=== PATIENT | female | born 2000 | race Hispanic/Latino ===

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

== ENCOUNTER 2018-10-24 21:52 | Emergency (ER) | payer OTHER, SELFPAY ==
--- OUTSIDE RECORDS SUMMARY | 2018-10-24 22:46 | XMS REPORT ---
:2000 [facility] [address] [place] [address] Care Team Providers Name Role Phone Unavailable Unavailable Unavailable Problems This patient has no known problems. Allergies, Adverse Reactions, Alerts This patient has no known allergies or adverse reactions. Medications This patient has no known medications.
[2018-10-24 22:49] LABS: Urine Blood 2+ (NEG); Urine Glucose NEGATIVE (NEG); Urine Protein 1+ (NEG); Urine Specific Gravity <1.005 (1.005-1.030)
[2018-10-24] MEDS ORDERED: HYDROMORPHONE HCL 0.5 MG/0.5 ML INJ ONE (22:55)
[2018-10-24] MEDS ORDERED: NA CHLORIDE 0.9% 1,000 ML ONE (22:55)
[2018-10-24] MEDS ORDERED: ONDANSETRON 4 MG/2 ML VIAL ONE (22:55)
[2018-10-24 23:35] LABS: Absolute Monocytes 0.6 K/uL (0.1-1.3); Absolute Neutrophil 7.3 K/uL (1.8-8.0); Basophils % 0.4 % (0-1.3); Eosinophils % 1.2 % (0-4.4); Hematocrit 41.1 % (36.0-45.0); Lymphocytes % 33.1 % (15.3-44.8); MPV 8.2 fL (7.6-11.3); Monocytes % 5.2 % (3.3-12.3); RBC Red Blood Cell Count 4.87 M/uL (3.86-4.86)
[2018-10-24 23:54] LABS: ALT/SGPT 24 U/L (12-78); AST/SGOT 11 U/L (15-37); Alkaline Phosphatase 127 U/L (45-117); BUN Blood Urea Nitrogen 16 mg/dL (7-18); Bicarbonate 25 mmol/L (21-32); Bilirubin Direct < 0.1 mg/dL (0-0.2); Bilirubin Total 0.3 mg/dL (0.2-1.0); Glucose Level 110 mg/dL (74-106); Lipase 143 U/L (73-393); Potassium 3.5 mmol/L (3.5-5.1); Protein, Total 8.2 g/dL (6.4-8.2); Sodium Level 141 mmol/L (136-145)
[2018-10-25] MEDS ORDERED: Levofloxacin500mg IV 500 MG/100 ML BAG IV ONE (00:18)
[2018-10-25] MEDS ORDERED: CEFTRIAXONE/SWI 1gm 1 GM/10 ML SYR ONE (00:18)
[2018-10-25] MEDS ORDERED: HYDROMORPHONE HCL 0.5 MG/0.5 ML INJ ONE (00:26)
--- NOTE | 2018-10-25 02:29 | ER ---
Nurse's Notes [facility] Name: Nicole Covarrubias Age: 18 yrs Sex: Female : 2000 Arrival Date: 10/24/2018 Time: 21:53 Bed 18 Private MD: Diagnosis: Abdominal tenderness;Cystitis;Cholelithiasis Presentation: 10/24 22:08 Presenting complaint: Patient states: Lower abdominal, low back and pelvic pain for the aj1 past 2 days that became severe this morning. Patient reports urinary frequency. nausea and vomiting. Transition of care: patient was not received from another setting of care. Onset of symptoms was October 24, 2018. Risk Assessment: Do you want to hurt yourself or someone else? Patient reports no desire to harm self or others. Initial Sepsis Screen: Does the patient meet any 2 criteria? No. Patient's initial sepsis screen is negative. Does the patient have a suspected source of infection? No. Patient's initial sepsis screen is negative. Care prior to arrival: None. 22:08 Method Of Arrival: Ambulatory aj1 22:08 Acuity: PHUONG 3 aj1 Triage Assessment: 22:10 General: Appears uncomfortable, Behavior is anxious, crying, restless. Pain: Complains aj1 of pain in low back area, right lower quadrant, left lower quadrant and pelvis Pain currently is 10 out of 10 on a pain scale. Neuro: Level of Consciousness is awake, alert, obeys commands. Cardiovascular: Patient's skin is warm and dry. Respiratory: Airway is patent Respiratory effort is even, unlabored, Respiratory pattern is regular, symmetrical. GI: Reports nausea, vomiting. : Reports urinary frequency. 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 - Social history:: Smoking status: Patient/guardian denies using tobacco. - Ebola Screening: : Patient denies travel to an Ebola-affected area in the 21 days before illness onset. - Family history:: not pertinent. Screenin:08 Abuse screen: Denies threats or abuse. Nutritional screening: No deficits noted. jb4 Tuberculosis screening: No symptoms or risk factors identified. Fall Risk None identified. Assessment: 22:10 General: Appears in no apparent distress. uncomfortable, Behavior is calm, cooperative, jb4 appropriate for age. Pain: Complains of pain in pelvis Pain does not radiate. Pain currently is 9 out of 10 on a pain scale. Quality of pain is described as crampy. Neuro: Level of Consciousness is awake, alert, obeys commands, Oriented to person, place, time, situation. Cardiovascular: Patient's skin is warm and dry. Respiratory: Airway is patent Respiratory effort is even, unlabored, Respiratory pattern is regular, symmetrical. GI: No signs and/or symptoms were reported involving the gastrointestinal system. : Reports urgency, urinary frequency, "a weird sensation after voiding.". EENT: No signs and/or symptoms were reported regarding the EENT system. Derm: Skin is intact, Skin is pink, warm \\T\\ dry. Musculoskeletal: Circulation, motion, and sensation intact. 23:00 Reassessment: Patient appears in no apparent distress at this time. Patient and/or jb4 family updated on plan of care and expected duration. Pain level reassessed. Patient is alert, oriented x 3, equal unlabored respirations, skin warm/dry/pink. 10/25 00:00 Reassessment: Patient appears in no apparent distress at this time. Patient and/or jb4 family updated on plan of care and expected duration. Pain level reassessed. Patient is alert, oriented x 3, equal unlabored respirations, skin warm/dry/pink. 01:00 Reassessment: Patient appears in no apparent distress at this time. Patient and/or jb4 family updated on plan of care and expected duration. Pain level reassessed. Patient is alert, oriented x 3, equal unlabored respirations, skin warm/dry/pink. Patient states feeling better. 02:00 Reassessment: Patient appears in no apparent distress at this time. Patient and/or jb4 family updated on plan of care and expected duration. Pain level reassessed. Patient is alert, oriented x 3, equal unlabored respirations, skin warm/dry/pink. Vital Signs: 10/24 22:10 BP 122 / 84; Pulse 103; Resp 18; Temp 98.6; Pulse Ox 100% on R/A; Weight 81.65 kg (R); aj1 Height 5 ft. 1 in. (154.94 cm) (R); Pain 10/10; 23:00 BP 128 / 77; Pulse 94; Resp 18; Pulse Ox 99% on R/A; jb4 10/25 00:00 BP 115 / 91; Pulse 54; Resp 16; Pulse Ox 100% on R/A; jb4 01:00 BP 107 / 65; Pulse 94; Resp 16; Pulse Ox 99% on R/A; jb4 02:15 BP 107 / 69; Pulse 88; Resp 16; Pulse Ox 100% on R/A; jb4 10/24 22:10 Body Mass Index 34.01 (81.65 kg, 154.94 cm) aj ED Course: 10/24 21:53 Patient arrived in ED. ag3 22:09 Triage completed. aj1 22:10 Arm band placed on. aj1 22:13 Topher Rodriguez MD is Attending Physician. [facility] 22:25 Inserted saline lock: 20 gauge in right antecubital area, using aseptic technique. ag4 22:30 Hector Graves, RN is Primary Nurse. [facility] 22:30 Patient has correct armband on for positive identification. Bed in low position. Call [facility] light in reach. Side rails up X 1. Pulse ox on. NIBP on. 22:32 Oral contrast given. 2 10/25 00:28 CT completed. Patient tolerated procedure well. Patient moved to CT via wheelchair. eh Patient moved back from CT. 01:19 CT Abd/Pelvis - W/Contrast In Process Unspecified. EDMS 02:28 Ronnie Denise MD is Referral Physician. [facility] 02:39 No provider procedures requiring assistance completed. IV discontinued, intact, jb4 bleeding controlled. Administered Medications: 10/24 22:50 Drug: Zofran 4 mg Route: IVP; Site: right antecubital; 4 10/25 01:04 Follow up: Response: No adverse reaction; Nausea is decreased [facility] 10/24 22:53 Drug: NS 0.9% 1000 ml Route: IV; Rate: 1 bolus; Site: right antecubital; 4 10/25 00:00 Follow up: Response: No adverse reaction; IV Status: Completed infusion [facility] 10/24 22:55 Drug: Dilaudid 0.5 mg Route: IVP; Site: right antecubital; jb4 10/25 01:05 Follow up: Response: No adverse reaction; Pain is decreased jb4 10/24 23:50 Drug: Rocephin - (cefTRIAXone) 1 grams {Note: Given IVP per pharmacy protocol.} Route: jb4 IVPB; Infused Over: 30 mins; Site: right antecubital; 23:52 Follow up: Response: No adverse reaction; IV Status: Completed infusion jb4 23:55 Drug: Dilaudid 0.5 mg Route: IVP; Site: right antecubital; jb4 10/25 01:05 Follow up: Response: No adverse reaction; Pain is decreased jb4 00:53 Drug: levofloxacin 500 mg Volume: 100 ml; Route: IVPB; Infused Over: 60 mins; Site: jb4 right antecubital; 01:53 Follow up: Response: No adverse reaction; IV Status: Completed infusion jb4 Outcome: 02:28 Discharge ordered by MD. daly 02:39 Discharged to home ambulatory, with significant other. jb4 02:39 Condition: stable 02:39 Discharge instructions given to patient, Instructed on discharge instructions, follow up and referral plans. medication usage, Demonstrated understanding of instructions, follow-up care, medications, Prescriptions given X 3. 02:40 Patient left the ED. jb4 Addendum: 10/27/2018 08:51 Addendum: Culture Results: Positive urine culture. No further action required. Bacteria i w sensitive to prescribed antibiotic. Signatures: Dispatcher [employer] EDMS Alicia Esparza RN RN aj1 Anderson, Corey, MD MD cha Hagler, Ana Domínguez RN RN iw Bryson, James, RN RN jb4 Namita Sandoval Alice ag3 Sandro Magdaleno ag4
--- NOTE | 2018-10-25 02:29 | EDPHYS ---
Physician Documentation [facility] Name: Nicole Covarrubias Age: 18 yrs Sex: Female : 2000 Arrival Date: 10/24/2018 Time: 21:53 Bed 18 Private MD: ED Physician Topher Rodriguez HPI: 10/24 22:29 This 18 yrs old Female presents to ER via Ambulatory with complaints of addy Abdominal Pain. 22:29 The patient presents with abdominal pain in the lower abdomen. Onset: The addy symptoms/episode began/occurred this morning. The symptoms do not radiate. Associated signs and symptoms: none. The symptoms are described as constant, crampy. Modifying factors: The symptoms are alleviated by nothing, the symptoms are aggravated by nothing. Severity of pain: At its worst the pain was moderate in the emergency department the pain is unchanged. The patient has not experienced similar symptoms in the past. 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 - Social history:: Smoking status: Patient/guardian denies using tobacco. - Ebola Screening: : Patient denies travel to an Ebola-affected area in the 21 days before illness onset. - Family history:: not pertinent. ROS: 22:29 Constitutional: Negative for fever, chills, and weight loss, Eyes: Negative for injury, addy pain, redness, and discharge, ENT: Negative for injury, pain, and discharge, Neck: Negative for injury, pain, and swelling, Cardiovascular: Negative for chest pain, palpitations, and edema, Respiratory: Negative for shortness of breath, cough, wheezing, and pleuritic chest pain, Back: Negative for injury and pain, : Negative for injury, bleeding, discharge, and swelling, MS/Extremity: Negative for injury and deformity, Skin: Negative for injury, rash, and discoloration, Neuro: Negative for headache, weakness, numbness, tingling, and seizure. 22:29 Abdomen/GI: Positive for abdominal pain, abdominal cramps, of the suprapubic area, right lower quadrant and left lower quadrant. Exam: 22:29 Constitutional: This is a well developed, well nourished patient who is awake, alert, addy and in no acute distress. Head/Face: Normocephalic, atraumatic. Eyes: Pupils equal round and reactive to light, extra-ocular motions intact. Lids and lashes normal. Conjunctiva and sclera are non-icteric and not injected. Cornea within normal limits. Periorbital areas with no swelling, redness, or edema. ENT: Nares patent. No nasal discharge, no septal abnormalities noted. Tympanic membranes are normal and external auditory canals are clear. Oropharynx with no redness, swelling, or masses, exudates, or evidence of obstruction, uvula midline. Mucous membranes moist. Neck: Trachea midline, no thyromegaly or masses palpated, and no cervical lymphadenopathy. Supple, full range of motion without nuchal rigidity, or vertebral point tenderness. No Meningismus. Chest/axilla: Normal chest wall appearance and motion. Nontender with no deformity. No lesions are appreciated. Cardiovascular: Regular rate and rhythm with a normal S1 and S2. No gallops, murmurs, or rubs. Normal PMI, no JVD. No pulse deficits. Respiratory: Lungs have equal breath sounds bilaterally, clear to auscultation and percussion. No rales, rhonchi or wheezes noted. No increased work of breathing, no retractions or nasal flaring. Back: No spinal tenderness. No costovertebral tenderness. Full range of motion. Female : Normal external genitalia. Skin: Warm, dry with normal turgor. Normal color with no rashes, no lesions, and no evidence of cellulitis. MS/ Extremity: Pulses equal, no cyanosis. Neurovascular intact. Full, normal range of motion. Neuro: Awake and alert, GCS 15, oriented to person, place, time, and situation. Cranial nerves II-XII grossly intact. Motor strength 5/5 in all extremities. Sensory grossly intact. Cerebellar exam normal. Normal gait. Psych: Awake, alert, with orientation to person, place and time. Behavior, mood, and affect are within normal limits. 22:29 Respiratory: the patient does not display signs of respiratory distress, Respirations: normal, Breath sounds: are clear throughout. 22:29 Abdomen/GI: Inspection: distension, Bowel sounds: normal, Palpation: mild abdominal tenderness, moderate abdominal tenderness, in the suprapubic area, right lower quadrant and left lower quadrant, Liver: no appreciated palpable abnormalities, Hernia: not appreciated. Vital Signs: 22:10 BP 122 / 84; Pulse 103; Resp 18; Temp 98.6; Pulse Ox 100% on R/A; Weight 81.65 kg (R); aj1 Height 5 ft. 1 in. (154.94 cm) (R); Pain 10/10; 23:00 BP 128 / 77; Pulse 94; Resp 18; Pulse Ox 99% on R/A; jb4 02 00:00 BP 115 / 91; Pulse 54; Resp 16; Pulse Ox 100% on R/A; jb4 01:00 BP 107 / 65; Pulse 94; Resp 16; Pulse Ox 99% on R/A; jb4 02:15 BP 107 / 69; Pulse 88; Resp 16; Pulse Ox 100% on R/A; jb4 10/24 22:10 Body Mass Index 34.01 (81.65 kg, 154.94 cm) [facility] MDM: 10/24 22:13 Patient medically screened. [facility] 22:33 Data reviewed: vital signs, nurses notes, lab test result(s), EKG, radiologic studies. [facility] 10/24 22:29 Order name: Basic Metabolic Panel; Complete Time: 00:40 [facility] 10/24 22:29 Order name: CBC with Diff; Complete Time: 00:40 [facility] 10/24 22:29 Order name: Creatinine for Radiology; Complete Time: 00:40 [facility] 10/24 22:29 Order name: Hepatic Function; Complete Time: 00:40 [facility] 10/24 22:29 Order name: Lipase; Complete Time: 00:40 [facility] 10/24 22:29 Order name: Urine Culture [facility] 10/24 22:29 Order name: CT Abd/Pelvis - W/Contrast [facility] 10/24 22:46 Order name: Urine Dipstick--Ancillary (enter results); Complete Time: 00:40 [facility] 10/24 22:46 Order name: Urine --Ancillary (enter results) [facility] 10/24 22:29 Order name: IV Saline Lock; Complete Time: 22:30 [facility] 10/24 22:29 Order name: Labs collected and sent; Complete Time: 22:30 [facility] 10/24 22:29 Order name: Urine Dipstick-Ancillary (obtain specimen); Complete Time: 23:03 [facility] 10/24 22:29 Order name: Urine Test (obtain specimen); Complete Time: 23:03 [facility] Administered Medications: 22:50 Drug: Zofran 4 mg Route: IVP; Site: right antecubital; [facility] 10/25 01:04 Follow up: Response: No adverse reaction; Nausea is decreased [facility] 10/24 22:53 Drug: NS 0.9% 1000 ml Route: IV; Rate: 1 bolus; Site: right antecubital; [facility] 10/25 00:00 Follow up: Response: No adverse reaction; IV Status: Completed infusion [facility] 10/24 22:55 Drug: Dilaudid 0.5 mg Route: IVP; Site: right antecubital; [facility] 10/25 01:05 Follow up: Response: No adverse reaction; Pain is decreased [facility] 10/24 23:50 Drug: Rocephin - (cefTRIAXone) 1 grams {Note: Given IVP per pharmacy protocol.} Route: [facility] IVPB; Infused Over: 30 mins; Site: right antecubital; 23:52 Follow up: Response: No adverse reaction; IV Status: Completed infusion [facility] 23:55 Drug: Dilaudid 0.5 mg Route: IVP; Site: right antecubital; [facility] 10/25 01:05 Follow up: Response: No adverse reaction; Pain is decreased [facility] 00:53 Drug: levofloxacin 500 mg Volume: 100 ml; Route: IVPB; Infused Over: 60 mins; Site: [facility] right antecubital; 01:53 Follow up: Response: No adverse reaction; IV Status: Completed infusion [facility] Disposition: 10/25/18 02:28 Discharged to Home. Impression: Abdominal tenderness, Cystitis, Cholelithiasis. - Condition is Stable. - Discharge Instructions: Abdominal Pain, Adult, Dysuria, Urinary Tract Infection, Adult, Urinary Tract Infection, Adult, [id number], Abdominal Pain, Adult, [id number]. - Prescriptions for Levaquin 500 mg Oral Tablet - take 1 tablet by ORAL route once daily for 7 days; 7 tablet. Tylenol- Codeine #3 300-30 mg Oral Tablet - take 2 tablets by ORAL route every 6 hours As needed; 20 tablet. Pyridium 200 mg Oral Tablet - take 1 tablet by ORAL route every 8 hours for 3 days; 9 tablet. - Medication Reconciliation Form, Thank You Letter, Antibiotic Education, Prescription Opioid Use form. - Follow up: Private Physician; When: 2 - 3 days; Reason: Recheck today's complaints, Continuance of care, Re-evaluation by your physician. Follow up: Ronnie Denise MD; When: 2 - 3 days; Reason: Recheck today's complaints, Re-evaluation by your physician. - Problem is new. - Symptoms have improved. Signatures: Dispatcher [employer] EDAlicia Mcpherson RN RN aj1 Topher Rodriguez MD MD cha Bryson, James, RN RN jb4 Corrections: (The following items were deleted from the chart) : 02:28 10/25/2018 02:28 Discharged to Home. Impression: Abdominal tenderness; Cystitis; addy Cholelithiasis. Condition is Stable. Discharge Instructions: Abdominal Pain, Adult, Dysuria, Urinary Tract Infection, Adult, Urinary Tract Infection, Adult, [id number], Abdominal Pain, Adult, [id number]. Prescriptions for Levaquin 500 mg Oral Tablet - take 1 tablet by ORAL route once daily for 7 days; 7 tablet, Tylenol-Codeine #3 300-30 mg Oral Tablet - take 2 tablets by ORAL route every 6 hours As needed; 20 tablet, Pyridium 200 mg Oral Tablet - take 1 tablet by ORAL route every 8 hours for 3 days; 9 tablet. and Forms are Medication Reconciliation Form, Thank You Letter, Antibiotic Education, Prescription Opioid Use. Follow up: Private Physician; When: 2 - 3 days; Reason: Recheck today's complaints, Continuance of care, Re-evaluation by your physician. Problem is new. Symptoms have improved. addy 02:40 02:29 10/25/2018 02:28 Discharged to Home. Impression: Abdominal tenderness; Cystitis; jb4 Cholelithiasis. Condition is Stable. Discharge Instructions: Abdominal Pain, Adult, Dysuria, Urinary Tract Infection, Adult, Urinary Tract Infection, Adult, [id number], Abdominal Pain, Adult, [id number]. Prescriptions for Levaquin 500 mg Oral Tablet - take 1 tablet by ORAL route once daily for 7 days; 7 tablet, Tylenol-Codeine #3 300-30 mg Oral Tablet - take 2 tablets by ORAL route every 6 hours As needed; 20 tablet, Pyridium 200 mg Oral Tablet - take 1 tablet by ORAL route every 8 hours for 3 days; 9 tablet. and Forms are Medication Reconciliation Form, Thank You Letter, Antibiotic Education, Prescription Opioid Use. Follow up: Private Physician; When: 2 - 3 days; Reason: Recheck today's complaints, Continuance of care, Re-evaluation by your physician. Follow up: Ronnie Denise; When: 2 - 3 days; Reason: Recheck today's complaints, Re-evaluation by your physician. Problem is new. Symptoms have improved. addy
--- NOTE | 2018-10-25 13:28 | RAD REPORT ---
EXAM DESCRIPTION: CT - Abdomen Pelvis W Contrast - 10/25/2018 4:39 am CLINICAL HISTORY: ABD PAIN. COMPARISON: None. TECHNIQUE: Contiguous axial sections are obtained through the abdomen and pelvis as per protocol aft er administration of iodinated contrast. Oral contrast was administered. Sagittal and coronal reforma tions were obtained. Automatic exposure control (AEC), mA and/or kV adjustment by patient size, and/or iterative reconstru ctive technique was used, per departmental dose optimization program, during the performance of the C T examination. 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 The visualized lung bases demonstrates no abnormalities. The liver is normal in size and demonstrates normal attenuation and enhancement. The spleen, pancreas e, adrenal glands appear normal in size and attenuation without any focal abnormalities. The gallblad kinjal is well distended and demonstrates gallstones. Kidneys demonstrate no evidence of calculi. Kidneys are normal in size, shape, attenuation and enhanc ement. Focal areas of parenchymal loss is noted within the kidney The aorta, IVC and retroperitoneal structures appear normal. The stomach appears unremarkable. The small bowel loops appear unremarkable. The appendix is surgically absent. The colon is unremarkab le. Evidence of mesenteric adenitis is noted. No evidence of free intraperitoneal fluid or air is noted. CT examination of the pelvis demonstrates no evidence of mass or adenopathy. The urinary bladder appe ars normal. The reproductive organs are unremarkable. Inguinal regions are unremarkable. Bony structures are unremarkable. IMPRESSION: Gallstones. Focal areas of right renal parenchymal loss suggestive of prior renal infection. Electronically signed by Mary Ann Ingram MD 10/25/2018 1:29 AM SATELLITE TV INSTALLER Due to temporary technical issues with the PACS/Fluency reporting system, reports are being signed by the in house radiologist as a courtesy to ensure prompt reporting. The interpreting radiologist is f ully responsible for the content of the report.
== END 2018-10-25 02:40 | disposition home or self-care (01) ==
LOC: ER 21:52
DX: N30.90 Cystitis, unspecified without hematuria (principal); K81.9 Cholecystitis, unspecified; Z88.0 Allergy status to penicillin; Z88.1 Allergy status to other antibiotic agents; Z88.5 Allergy status to narcotic agent
CPT/HCPCS: 36415; 74177; 80048; 80076; 81003; 81025; 83690; 85025; 87077; 87086; 87088; 87186; 96361; 96365; 96375; 99284; J0696; J1170; J2405; J7030; Q9967

== ENCOUNTER 2023-08-07 19:46 | Emergency (ER) | payer OTHER, SELFPAY ==
--- OUTSIDE RECORDS SUMMARY | 2023-08-07 19:52 | XMS REPORT | Continuity of Care Document ---
:2000 Author Organization [facility] t Address [address] [place] [address] Care Team Providers Name Role Phone Pcp, Patient Does Not Have A Primary Care Physician [id number] Abdelrahman Cameron Attending Clinician Unavailable NORBERT CORTES Attending Clinician Unavailable Alexus Gary RN Attending Clinician Unavailable HAROON DANIELSON Attending Clinician Unavailable HAROON DANIELSON Attending Clinician Unavailable Doctor Unassigned, [place] Attending Clinician Unavailable ABDELRAHMAN CAMERON Attending Clinician Unavailable Nurse, [facility] Attending Clinician Unavailable Clara Mackay MD Attending Clinician [phone] CLARA MACKAY Attending Clinician Unavailable Lynn Black MD Attending Clinician [phone] Jake Rodarte Attending Clinician Unavailable JEET COBIAN Attending Clinician Unavailable Jeet Cobian MD Attending Clinician Samanta Chapman RN Attending Clinician Unavailable REX ALVARADO Attending Clinician Unavailable Rex Alvarado MD Attending Clinician Vtc-Lab Attending Clinician Unavailable Unknown, Attending Attending Clinician Unavailable UNKNOWN, ATTENDING Attending Clinician Unavailable AKIN QUINTANILLA Attending Clinician Unavailable LORRAINE AGOSTO Attending Clinician Unavailable Lorraine Agosto MD Attending Clinician Dioni SAMUEL, Joe Attending Clinician Unavailable Callie Rivera Attending Clinician CALLIE CORMIER Attending Clinician Unavailable SANDRA CAMPBELL Attending Clinician Unavailable Nurse, [facility] Attending Clinician Unavailable Norbert Cortes MD Attending Clinician Only, Clc Bls Test Attending Clinician Unavailable Elodia SAMUEL, Lizbet Swain Attending Clinician Unavailable Mary Stein MD Attending Clinician [phone] MARY STEIN Attending Clinician Unavailable JENIFFER MORROW Attending Clinician Unavailable Alysia MONTESP, Caitie Attending Clinician MD GISELLE MICHELE Attending Clinician Unavailable Mutendereki SUPERVISOR LOGGING, Eddi Attending Clinician Abdelrahman Cameron Admitting Clinician Unavailable NORBERT CORTES Admitting Clinician Unavailable Physician, No Primary or Family Admitting Clinician UnavailREX Galvez Admitting Clinician Unavailable CALLIE CORMIER Admitting Clinician Unavailable Norbert Cortes MD Admitting Clinician SANDRA CAMPBELL Admitting Clinician Unavailable MD SANDRA CAMPBELL Admitting Clinician Unavailable Payers Payer Name Policy Type Policy Number Effective Date Expiration Date [facility] [id number] 2019 CHOICE MEDICAID 00:00:00 [place] OF [place] [id number] 2019 00:00:00 [place] [id number] 2019 WOMEN 00:00:00 Problems Condition Condition Condition Status Onset Resolution Last Treating Co mments Source Name Details Category Date Date Treatment Clinician Date 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 Added automatic ally from request for surgery [id number] Disease Active Met hodi 8-09 st 00:00: Hospita 00 l Previous Previous Disease Active Metho di 5-11 st section section 00:00: Hospita 00 l Previous Previous Disease Active 2017-09 Unive rs 0-15 ity of section section 00:00: [place] 00 Medical Branch Mild Mild Disease Active Univers intermitte intermitte 4-17 it y of nt asthma nt asthma 00:[place] without without 00 Medical complicati complicati Br anch on on Obesity Obesity Disease Active Univers (BMI (BMI 7-30 ity of 30-39.9) 30-39.9) 00:00: Medical Branch Allergies, Adverse Reactions, Alerts Allergy Allergy Status Severity Reaction(s) Onset Inactive Treating Comm ents Source Name Type Date Date Clinician morphine DA Active SV SEIZURES 2021-09 [facility] 2-06 Clear 00:00: [place] 00 [facility] Penicill DA Active SV rash, hives, 2021-09 HC A ins swelling 2-06 Clear 00:00: [place] 00 [facility] clavulan DA Active MO FACIAL 2021-09 [facility] ic acid SWELLING 2-05 Clear 00:00: [place] 00 [facility] amoxicil DA Active MO FACIAL 2021-09 [facility] david SWELLING 2-05 Clear 00:00: [place] 00 [facility] Nitrofur Propensi Active Hives Univer s antoin ty to 10-02 ity of Monohyd/ adverse 00:00: [place] M-Cryst reaction 00 Medical s Branch NITROFUR DRUG Active Hives Univers ANTOIN 10-02 ity of MONOHYD/ 00:00: [place] M-CRYST 00 Medical Branch Nitrofur Propensi Active Hives Method i antoin ty to 10-02 st Monohyd/ adverse 00:00: Hospita M-Cryst reaction 00 l s to drug Penicill Propensi Active Swelling 2015-09 Univ ers in ty to ity of adverse 00:00: [place] reaction 00 Medical s Branch Amoxicil Propensi Active Rash 2015-09 Univer s david ty to ity of adverse 00:00: [place] reaction 00 Medical s Branch Amoxicil Propensi Active Swelling 2015-09 Univ ers david-Pot ty to 2-31 ity of Clavulan adverse 00:00: [place] ate reaction 00 Medical s Branch Morphine Propensi Active Palpitations 2015- Univers ty to 2 ity of adverse 00:00: [place] reaction 00 Medical s Branch AMOXICIL DRUG Active Rash 2015-09 Univers DAVID INGREDI 2 ity of 00:00: [place] 00 Medical Branch AMOXICIL DRUG Active Hives 2015-09 Univers DAVID-POT ity of CLAVULAN 00:00: [place] ATE 00 Medical Branch PENICILL DRUG Active Hives 2015-09 Univers IN INGREDI ity of 00:00: [place] 00 Medical Branch MORPHINE DRUG Active Low Palpitations 2015-09 Un bennie INGREDI ity of 00:00: [place] 00 Medical Branch Amoxicil Propensi Active Swelling 2015-09 Meth jimbo david-Pot ty to st Clavulan adverse 00:00: Hospita ate reaction 00 l s to drug Morphine Propensi Active Palpitations 2015-[address] adverse 00:00: Hospita reaction 00 l s to drug Penicill Propensi Active Swelling 2015-09 Meth jimbo in ty to st adverse 00:00: Hospita reaction 00 l s to drug Penicill Propensi Active Rash 0 Univer s ins ty to 1-10 ity of adverse 00:00: [place] reaction 00 Medical s Branch Penicill Propensi Active Rash 0 Univer s ins ty to 1-10 ity of adverse 00:00: [place] reaction 00 Medical s Branch Penicill Propensi Active Rash 0 Univer s ins ty to 1-10 ity of adverse 00:00: [place] reaction 00 Medical s Branch Potassiu Propensi Active Other - See 0 U nivers m ty to comments 1-10 ity of Clavulan adverse 00:00: [place] ate reaction 00 Medical s Branch POTASSIU DRUG Active Other-Cmnt 0 Univ ers M INGREDI 1-10 ity of CLAVULAN 00:00: [place] ATE 00 Medical Branch PENICILL Drug Active Low Other-Cmnt 0 Univ ers INS Class 1-10 ity of 00:00: [place] 00 Medical Branch Amoxicil Propensi Active Rash 0 Method i david ty to 1-10 st adverse 00:00: Hospita reaction 00 l s to drug Amoxicil Propensi Active Other (See Me tari david ty to Comments) 1-10 st Trihydra adverse 00:00: Hospita te reaction 00 l s to drug Potassiu Propensi Active Other (See Me thodi m ty to Comments) 1-10 st Clavulan adverse 00:00: Hospita ate reaction 00 l s to drug AMOXICIL DA Active MO FACIAL [facility] DAVID SWELLING 6-15 Clear 00:00: [place] 00 [facility] AUGMENTI DA Active MO FACIAL [facility] N SWELLING 6-15 Clear 00:00: [place] 00 [facility] Family History Family Member Diagnosis Comments Start Date Stop Date Source Maternal uncle Stroke [facility] Natural father Hypertension [facility] Social History Social Habit Start Date Stop Date Quantity Comments Source [facility] 2022-06-07 2022-06-17 [facility] Alcohol intake 2020-06-10 2020-06-10 Ex-drinker [facility] 00:00:00 00:00:00 (finding) Hospital History of Social 2020-06-10 2020-06-[address] function 00:00:00 00:00:00 Hospital Tobacco use and 2017-12-01 2017-12-01 Smokeless Universit y of exposure 00:00:00 00:00:00 tobacco non-user [facility] Sex Assigned At [birth year] F [facility] 00:00:00 00:00:00 Hospital Smoking Status Start Date Stop Date Source Never smoked tobacco [facility] Medications Ordered Filled Start Stop Current Ordering Indication Dosage Frequency Signature Comments Components Source Medication Medication Date Date Medication? Clinician (SIG) Name Name ondansetron 2021- No 8mg 8 mg, Slow Univers (ZOFRAN 01-08 04-30 IV Push, ity of (PF)) 18:00: 17:04 ONCE, 1 [place] injection 8 00 :00 dose, On Medi katie mg Sat Branch 01/08/22 at 1300, HARRIET NaCl 0.9% 2021- No 1000mL at 999 Uni vers (NS) bolus 30 04-30 mL/hr, ity of infusion 18:00: 19:10 1,000 mL, [place] as 1,000 mL 00 :00 IV Medical Infusion, Branch ONCE, 1 dose, On 01/08/22 at 1300, HARRIET ondansetron 2021-0 Yes [id number] 8mg Take 1 Univers 8 mg 4-30 tablet by ity of disintegrat 00:00: mouth [place] ing tablet 00 every 8 Medica l (eight) Branch hours as needed for Nausea and Vomiting (N/V). ondansetron 2021-0 Yes [id number] 8mg Take 1 Univers 8 mg 4-30 tablet by ity of disintegrat 00:00: mouth [place] ing tablet 00 every 8 Medica l (eight) Branch hours as needed for Nausea and Vomiting (N/V). ondansetron 2021-0 Yes [id number] 8mg Take 1 Univers 8 mg 4-30 tablet by ity of disintegrat 00:00: mouth [place] ing tablet 00 every 8 Medica l (eight) Branch hours as needed for Nausea and Vomiting (N/V). ondansetron 2021-0 Yes [id number] 8mg Take 1 Univers 8 mg 4-30 tablet by ity of disintegrat 00:00: mouth [place] ing tablet 00 every 8 Medica l (eight) Branch hours as needed for Nausea and Vomiting (N/V). ondansetron 2021-0 Yes [id number] 8mg Take 1 Univers 8 mg 4-30 tablet by ity of disintegrat 00:00: mouth [place] ing tablet 00 every 8 Medica l (eight) Branch hours as needed for Nausea and Vomiting (N/V). ondansetron 2021-0 Yes [id number] 8mg Take 1 Univers 8 mg 4-30 tablet by ity of disintegrat 00:00: mouth [place] ing tablet 00 every 8 Medica l (eight) Branch hours as needed for Nausea and Vomiting (N/V). ondansetron 2021-0 Yes [id number] 8mg Take 1 Univers 8 mg 4-30 tablet by ity of disintegrat 00:00: mouth [place] ing tablet 00 every 8 Medica l (eight) Branch hours as needed for Nausea and Vomiting (N/V). 2021-0 2022- No 1{tbl} Take 1 Univ ers vitamin 3-02 03-02 tablet by ity of w/FA tablet 14:40: 00:00 [place] 06 :00 daily. Medical Branch ibuprofen 2020-09- No [id number] 800mg Take 1 Univers 800 mg 0-25 03-02 tablet by ity of tablet 00:00: 00:00 mouth [place] 00 :00 every 8 Medical (eight) Branch hours as needed for Pain (scale 4-6) for up to 30 doses. norgestimat 2017-09- No 1{tbl} Take 1 U nivers e-ethinyl 2-17 03-02 tablet by ity of estradiol 00:00: 00:00 mouth [place] 0.25-35 00 :00 daily. Medical mg-mcg per Branch tablet albuterol Yes 2{puff} Inhale 2 U nivers 90 4-17 Puffs ity of mcg/actuati 00:00: every 6 [place] as on inhaler 00 (six) Medical hours as Branch needed for Wheezing or Shortness of Breath. albuterol Yes 2{puff} Inhale 2 U nivers 90 4-17 Puffs ity of mcg/actuati 00:00: every 6 [place] as on inhaler 00 (six) Medical hours as Branch needed for Wheezing or Shortness of Breath. albuterol Yes 2{puff} Inhale 2 U nivers 90 4-17 Puffs ity of mcg/actuati 00:00: every 6 [place] as on inhaler 00 (six) Medical hours as Branch needed for Wheezing or Shortness of Breath. albuterol Yes 2{puff} Inhale 2 U nivers 90 4-17 Puffs ity of mcg/actuati 00:00: every 6 [place] as on inhaler 00 (six) Medical hours as Branch needed for Wheezing or Shortness of Breath. albuterol Yes 2{puff} Inhale 2 U nivers 90 4-17 Puffs ity of mcg/actuati 00:00: every 6 [place] as on inhaler 00 (six) Medical hours as Branch needed for Wheezing or Shortness of Breath. albuterol Yes 2{puff} Inhale 2 U nivers 90 4-17 Puffs ity of mcg/actuati 00:00: every 6 [place] as on inhaler 00 (six) Medical hours as Branch needed for Wheezing or Shortness of Breath. albuterol 2017-0 Yes 2{puff} Inhale 2 U nivers 90 4-17 Puffs ity of mcg/actuati 00:00: every 6 [place] as on inhaler 00 (six) Medical hours as Branch needed for Wheezing or Shortness of Breath. albuterol 0 Yes 2{puff} Inhale 2 U nivers 90 4-17 Puffs ity of mcg/actuati 00:00: every 6 [place] as on inhaler 00 (six) Medical hours as Branch needed for Wheezing or Shortness of Breath. albuterol Yes 2{puff} Inhale 2 U nivers 90 4-17 Puffs ity of mcg/actuati 00:00: every 6 [place] as on inhaler 00 (six) Medical hours as Branch needed for Wheezing or Shortness of Breath. albuterol 0 Yes 2{puff} Inhale 2 U nivers 90 4-17 Puffs ity of mcg/actuati 00:00: every 6 [place] as on inhaler 00 (six) Medical hours as Branch needed for Wheezing or Shortness of Breath. albuterol Yes 2{puff} Inhale 2 U nivers 90 4-17 Puffs ity of mcg/actuati 00:00: every 6 [place] as on inhaler 00 (six) Medical hours as Branch needed for Wheezing or Shortness of Breath. albuterol 0 Yes 2{puff} Inhale 2 U nivers 90 4-17 Puffs ity of mcg/actuati 00:00: every 6 [place] as on inhaler 00 (six) Medical hours as Branch needed for Wheezing or Shortness of Breath. albuterol 0 Yes 2{puff} Inhale 2 U nivers 90 4-17 Puffs ity of mcg/actuati 00:00: every 6 [place] as on inhaler 00 (six) Medical hours as Branch needed for Wheezing or Shortness of Breath. albuterol 2017-0 Yes 2{puff} Inhale 2 U nivers 90 4-17 Puffs ity of mcg/actuati 00:00: every 6 [place] as on inhaler 00 (six) Medical hours as Branch needed for Wheezing or Shortness of Breath. albuterol 0 Yes 2{puff} Inhale 2 U nivers 90 4-17 Puffs ity of mcg/actuati 00:00: every 6 [place] as on inhaler 00 (six) Medical hours as Branch needed for Wheezing or Shortness of Breath. Immunizations Ordered Filled Date Status Comments Source Immunization Name Immunization Name [facility] 2022-06-17 Completed University of 00:00:00 [facility] TDAP 2022-06-17 Completed University of 00:00:00 [facility] Tdap 2020-02-17 Completed Church 00:00:00 [facility] Influenza Virus 2018-06-11 Completed Universit y of Vaccine Quad ID 00:00:00 [place] Med ical 18-64 YRS Branch Influenza Virus 2018-06-11 Completed Universit y of Vaccine Quad ID 00:00:00 [facility] ical 18-64 YRS Branch Influenza Virus 2018-06-11 Completed Universit y of Vaccine Quad ID 00:00:00 [facility] ical 18-64 YRS Branch Influenza Virus 2018-06-11 Completed Universit y of Vaccine Quad ID 00:00:00 [facility] ical 18-64 YRS Branch Influenza Virus 2018-06-11 Completed Universit y of Vaccine Quad ID 00:00:00 [facility] ical 18-64 YRS Branch Influenza Virus 2018-06-11 Completed Universit y of Vaccine Quad ID 00:00:00 [facility] ical 18-64 YRS Branch Influenza Virus 2018-06-11 Completed Universit y of Vaccine Quad ID 00:00:00 [facility] ical 18-64 YRS Branch Influenza Virus 2018-06-11 Completed Universit y of Vaccine Quad ID 00:00:00 [facility] ical 18-64 YRS Branch Influenza Virus 2018-06-11 Completed Universit y of Vaccine Quad ID 00:00:00 [facility] ical 18-64 YRS Branch Influenza Virus 2018-06-11 Completed Universit y of Vaccine Quad ID 00:00:00 [facility] ical 18-64 YRS Branch Influenza Virus 2018-06-11 Completed Universit y of Vaccine Quad ID 00:00:00 [facility] ica 18-64 YRS Branch TDAP 2018-05-28 Completed University of 00:00:00 [facility] TDAP 2018-05-28 Completed University of 00:00:00 [facility] TDAP 2018-05-28 Completed University of 00:00:00 [facility] TDAP 2018-05-28 Completed University of 00:00:00 [facility] TDAP 2018-05-28 Completed University of 00:00:00 [facility] TDAP 2018-05-28 Completed University of 00:00:00 [facility] TDAP 2018-05-28 Completed University of 00:00:00 [facility] TDAP 2018-05-28 Completed University of 00:00:00 [facility] TDAP 2018-05-28 Completed University of 00:00:00 [facility] TDAP 2018-05-28 Completed University of 00:00:00 [facility] TDAP 2018-05-28 Completed University of 00:00:00 [facility] HIB 4 Dose Schedule 1999-05-13 Completed Unive rsity of 00:00:00 [facility] MMR 1999-05-13 Completed University of 00:00:00 [facility] Polio (IPV/OPV) 1999-05-13 Completed Universit y of 00:00:00 [facility] Varicella 1999-05-13 Completed University of (varivax)(chicken 00:00:00 [place] M edical pox) Branch HIB 4 Dose Schedule 1999-05-13 Completed Unive rsity of 00:00:00 [facility] MMR 1999-05-13 Completed University of 00:00:00 [facility] Polio (IPV/OPV) 1999-05-13 Completed Universit y of 00:00:00 [facility] Varicella 1999-05-13 Completed University of (varivax)(chicken 00:00:00 [place] M edical pox) Branch HIB 4 Dose Schedule 1999-05-13 Completed Unive rsity of 00:00:00 [facility] MMR 1999-05-13 Completed University of 00:00:00 [facility] Polio (IPV/OPV) 1999-05-13 Completed Universit y of 00:00:00 [facility] Varicella 1999-05-13 Completed University of (varivax)(chicken 00:00:00 [place] M edical pox) Branch HIB 4 Dose Schedule 1999-05-13 Completed Unive rsity of 00:00:00 [facility] MMR 1999-05-13 Completed University of 00:00:00 [facility] Polio (IPV/OPV) 1999-05-13 Completed Universit y of 00:00:00 [facility] Varicella 1999-05-13 Completed University of (varivax)(chicken 00:00:00 [place] M edical pox) Branch HIB 4 Dose Schedule 1999-05-13 Completed Unive rsity of 00:00:00 [facility] MMR 1999-05-13 Completed University of 00:00:00 [facility] Polio (IPV/OPV) 1999-05-13 Completed Universit y of 00:00:00 [facility] Varicella 1999-05-13 Completed University of (varivax)(chicken 00:00:00 [place] M edical pox) Branch HIB 4 Dose Schedule 1999-05-13 Completed Unive rsity of 00:00:00 [facility] MMR 1999-05-13 Completed University of 00:00:00 [facility] Polio (IPV/OPV) 1999-05-13 Completed Universit y of 00:00:00 [facility] Varicella 1999-05-13 Completed University of (varivax)(chicken 00:00:00 [place] M edical pox) Branch HIB 4 Dose Schedule 1999-05-13 Completed Unive rsity of 00:00:00 [facility] MMR 1999-05-13 Completed University of 00:00:00 [facility] Polio (IPV/OPV) 1999-05-13 Completed Universit y of 00:00:00 [facility] Varicella 1999-05-13 Completed University of (varivax)(chicken 00:00:00 [place] M edical pox) Branch HIB 4 Dose Schedule 1999-05-13 Completed Unive rsity of 00:00:00 [facility] MMR 1999-05-13 Completed University of 00:00:00 [facility] Polio (IPV/OPV) 1999-05-13 Completed Universit y of 00:00:00 [facility] Varicella 1999-05-13 Completed University of (varivax)(chicken 00:00:00 [place] M edical pox) Branch DTAP 1998 Completed University of 00:00:00 [facility] Hep B, Adol or Pedi 1998 Completed Unive rsity of Dosage 00:00:00 [facility] HIB 4 Dose Schedule 1998 Completed Unive rsity of 00:00:00 [facility] DTAP 1998 Completed University of 00:00:00 [facility] Hep B, Adol or Pedi 1998 Completed Unive rsity of Dosage 00:00:00 [facility] HIB 4 Dose Schedule 1998 Completed Unive rsity of 00:00:00 [facility] DTAP 1998 Completed University of 00:00:00 [place] [facility] Hep B, Adol or Pedi 1998 Completed Unive rsity of Dosage 00:00:00 [place] [facility] HIB 4 Dose Schedule 1998 Completed Unive rsity of 00:00:00 [place] [facility] DTAP 1998 Completed University of 00:00:00 [place] [facility] Hep B, Adol or Pedi 1998 Completed Unive rsity of Dosage 00:00:00 [place] [facility] HIB 4 Dose Schedule 1998 Completed Unive rsity of 00:00:00 [facility] Branch DTAP 1998 Completed University of 00:00:00 [place] [facility] Hep B, Adol or Pedi 1998 Completed Unive rsity of Dosage 00:00:00 [place] [facility] HIB 4 Dose Schedule 1998 Completed Unive rsity of 00:00:00 [facility] Branch DTAP 1998 Completed University of 00:00:00 [place] [facility] Hep B, Adol or Pedi 1998 Completed Unive rsity of Dosage 00:00:00 [place] [facility] HIB 4 Dose Schedule 1998 Completed Unive rsity of 00:00:00 [facility] Branch DTAP 1998 Completed University of 00:00:00 [place] [facility] Hep B, Adol or Pedi 1998 Completed Unive rsity of Dosage 00:00:00 [place] [facility] HIB 4 Dose Schedule 1998 Completed Unive rsity of 00:00:00 [facility] Branch DTAP 1998 Completed University of 00:00:00 [place] [facility] Hep B, Adol or Pedi 1998 Completed Unive rsity of Dosage 00:00:00 [facility] Branch HIB 4 Dose Schedule 1998 Completed Unive rsity of 00:00:00 [facility] DTAP 1998 Completed University of 00:00:00 [facility] HIB 4 Dose Schedule 1998 Completed Unive rsity of 00:00:00 [facility] Polio (IPV/OPV) 1998 Completed Universit y of 00:00:00 [facility] DTAP 1998 Completed University of 00:00:00 [facility] HIB 4 Dose Schedule 1998 Completed Unive rsity of 00:00:00 [facility] Polio (IPV/OPV) 1998 Completed Universit y of 00:00:00 [facility] DTAP 1998 Completed University of 00:00:00 [facility] HIB 4 Dose Schedule 1998 Completed Unive rsity of 00:00:00 [facility] Polio (IPV/OPV) 1998 Completed Universit y of 00:00:00 [facility] DTAP 1998 Completed University of 00:00:00 [facility] HIB 4 Dose Schedule 1998 Completed Unive rsity of 00:00:00 [facility] Polio (IPV/OPV) 1998 Completed Universit y of 00:00:00 [facility] DTAP 1998 Completed University of 00:00:00 [facility] HIB 4 Dose Schedule 1998 Completed Unive rsity of 00:00:00 [facility] Polio (IPV/OPV) 1998 Completed Universit y of 00:00:00 [facility] DTAP 1998 Completed University of 00:00:00 [facility] HIB 4 Dose Schedule 1998 Completed Unive rsity of 00:00:00 [facility] Polio (IPV/OPV) 1998 Completed Universit y of 00:00:00 [facility] DTAP 1998 Completed University of 00:00:00 [facility] HIB 4 Dose Schedule 1998 Completed Unive rsity of 00:00:00 [facility] Polio (IPV/OPV) 1998 Completed Universit y of 00:00:00 [facility] DTAP 1998 Completed University of 00:00:00 [facility] HIB 4 Dose Schedule 1998 Completed Unive rsity of 00:00:00 [facility] Polio (IPV/OPV) 1998 Completed Universit y of 00:00:00 [facility] DTAP 1998 Completed University of 00:00:00 [facility] Hep B, Adol or Pedi 1998 Completed Unive rsity of Dosage 00:00:00 [facility] HIB 4 Dose Schedule 1998 Completed Unive rsity of 00:00:00 [facility] Polio (IPV/OPV) 1998 Completed Universit y of 00:00:00 [facility] DTAP 1998 Completed University of 00:00:00 [facility] Hep B, Adol or Pedi 1998 Completed Unive rsity of Dosage 00:00:00 [facility] HIB 4 Dose Schedule 1998 Completed Unive rsity of 00:00:00 [facility] Polio (IPV/OPV) 1998 Completed Universit y of 00:00:00 [facility] DTAP 1998 Completed University of 00:00:00 [facility] Hep B, Adol or Pedi 1998 Completed Unive rsity of Dosage 00:00:00 [facility] HIB 4 Dose Schedule 1998 Completed Unive rsity of 00:00:00 [facility] Polio (IPV/OPV) 1998 Completed Universit y of 00:00:00 [facility] DTAP 1998 Completed University of 00:00:00 [facility] Hep B, Adol or Pedi 1998 Completed Unive rsity of Dosage 00:00:00 [facility] HIB 4 Dose Schedule 1998 Completed Unive rsity of 00:00:00 [facility] Polio (IPV/OPV) 1998 Completed Universit y of 00:00:00 [facility] DTAP 1998 Completed University of 00:00:00 [facility] Hep B, Adol or Pedi 1998 Completed Unive rsity of Dosage 00:00:00 [facility] HIB 4 Dose Schedule 1998 Completed Unive rsity of 00:00:00 [facility] Polio (IPV/OPV) 1998 Completed Universit y of 00:00:00 [facility] DTAP 1998 Completed University of 00:00:00 [facility] Hep B, Adol or Pedi 1998 Completed Unive rsity of Dosage 00:00:00 [facility] HIB 4 Dose Schedule 1998 Completed Unive rsity of 00:00:00 [facility] Polio (IPV/OPV) 1998 Completed Universit y of 00:00:00 [facility] DTAP 1998 Completed University of 00:00:00 [facility] Hep B, Adol or Pedi 1998 Completed Unive rsity of Dosage 00:00:00 [facility] HIB 4 Dose Schedule 1998 Completed Unive rsity of 00:00:00 [facility] Polio (IPV/OPV) 1998 Completed Universit y of 00:00:00 [facility] DTAP 1998 Completed University of 00:00:00 [facility] Hep B, Adol or Pedi 1998 Completed Unive rsity of Dosage 00:00:00 [facility] HIB 4 Dose Schedule 1998 Completed Unive rsity of 00:00:00 [facility] Polio (IPV/OPV) 1998 Completed Universit y of 00:00:00 [facility] Hep B, Adol or Pedi 1998 Completed Unive rsity of Dosage 00:00:00 [facility] Hep B, Adol or Pedi 1998 Completed Unive rsity of Dosage 00:00:00 [facility] Hep B, Adol or Pedi 1998 Completed Unive rsity of Dosage 00:00:00 [facility] Hep B, Adol or Pedi 1998 Completed Unive rsity of Dosage 00:00:00 [facility] Hep B, Adol or Pedi 1998 Completed Unive rsity of Dosage 00:00:00 [facility] Hep B, Adol or Pedi 1998 Completed Unive rsity of Dosage 00:00:00 [facility] Hep B, Adol or Pedi 1998 Completed Unive rsity of Dosage 00:00:00 [facility] Hep B, Adol or Pedi 1998 Completed Unive rsity of Dosage 00:00:00 [facility] TDAP Unknown Completed [facility] Influenza Virus Unknown Completed Universit y of Vaccine Quad ID [facility] 18-64 YRS Branch TDAP Unknown Completed [facility] TDAP Unknown Completed [facility] TDAP Unknown Completed [facility] Influenza Virus Unknown Completed Universit y of Vaccine [place] [facility] 18-64 Y[facility] TDAP Unknown Completed [facility] TDAP Unknown Completed [facility] Influenza Virus Unknown Completed Universit y of Vaccine Quad ID [place] [facility] 18-64 YRS Branch TDAP Unknown Completed [facility] TDAP Unknown Completed [facility] Influenza Virus Unknown Completed Universit y of Vaccine Quad ID [facility] ical 18-64 YRS Branch TDAP Unknown Completed [facility] Tdap Unknown Completed [facility] Vital Signs Vital Name Observation Time Observation Value Comments Source Systolic blood 2022-01-08 18:30:00 117 mm[Hg] Univer sity of pressure [facility] Diastolic blood 2022-01-08 18:30:00 67 mm[Hg] Unive rsity of [facility] Heart rate 2022-01-08 18:30:00 90 /min Universi ty [facility] Respiratory rate 2022-01-08 18:30:00 18 /min [facility] Oxygen saturation in 2022-01-08 18:30:00 99 /min [facility] Arterial blood by [facility] Pulse oximetry Branch Body temperature 2022-01-08 16:39:00 36.89 Kerry [facility] Body height 2022-01-08 16:39:[address] [facility] Body weight 2022-01-08 16:39:00 86.183 kg [facility] BMI 2022-01-08 16:39:00 34.75 kg/m2 [facility] Systolic blood 2021-11-10 20:11:00 112 mm[Hg] Univer sity of [facility] Diastolic blood 2021-11-10 20:11:00 67 mm[Hg] Unive rsity of [facility] Heart rate 2021-11-10 20:11:00 87 /min Universi ty [facility] Body temperature 2021-11-10 20:11:00 37.22 Kerry [facility] Respiratory rate 2021-11-10 20:11:00 16 /min [facility] Body height 2021-11-10 20:11:[address] [facility] Body weight 2021-11-10 20:11:00 91.354 kg [facility] BMI 2021-11-10 20:11:00 35.68 kg/m2 [facility] Oxygen saturation in 2021-11-10 20:11:00 100 /min [facility] Arterial blood by [facility] Pulse oximetry Branch Procedures Procedure Date / Time Performing Clinician Source Performed AUTHORIZATION FOR 2022-12-07 05:01:00 Doctor Unassigned, No [facility] RELEASE OF PHI Name [facility] Branch [id number] 2022-08-16 00:00:00 MILKE.02 [facility] TDAP VACCINE, >11 YRS, 2022-06-17 16:24:59 Rex Alvarado [facility] EKG-12 LEAD 2022-01-08 18:49:56 M[facility] POCT TEST 2022-01-08 17:23:00 Jeet Cobian [facility] COMP. METABOLIC PANEL 2022-01-08 16:59:00 Mango [facility] ([id number] CBC WITH DIFF 2022-01-08 16:59:00 Mango [facility] URINALYSIS 2022-01-08 16:59:00 Mango [facility] CONSENT/REFUSAL FOR 2022-01-08 16:32:06 Doctor Unassigned, No [facility] DIAGNOSIS AND TREATMENT Name [facility] US PELVIS COMPLETE WITH 2021-12-06 14:59:26 Cristin Black [facility] TRANSVAGINAL [facility] POCT TEST 2021-11-10 21:37:00 Sofia [facility] Plan of Care Planned Activity Planned Date Details Comments Source Future Scheduled 2023-07-08 COVID-19 VACCINE (#1) Me [facility] Test 07:03:40 [code = COVID-19 VACCINE (#1)] Future Scheduled 2023-07-08 [facility] 07:03:40 malignant neoplasm of cervix (procedure) [code = 627891566] Future Scheduled 2023-07-08 INFLUENZA VACCINE [facility] Test 07:03:40 (#1) [code = INFLUENZA VACCINE (#1)] Future Scheduled 2022-10-09 COVID-19 VACCINE (#1) [facility] Hospital Test 22:22:02 [code = COVID-19 VACCINE (#1)] Future Scheduled 2022-10-09 [facility] Test 22:22:02 Chlamydia trachomatis (procedure) [code = 348518523] Future Scheduled 2022-10-09 [facility]ZA VACCINE [facility] Test 22:22:02 [code = INFLUENZA VACCINE] Future Scheduled 2022-10-09 [facility] Test 22:22:02 malignant neoplasm of cervix (procedure) [code = 988388488] Encounters Start End Encounter Admission Attending Care Care Encounter Source Date/Time Date/Time Type Type Clinicians Facility Department ID 2022-12-05 Inpatient PAN Davila DAYS [id number] [facility] 09:30:00 Abdelrahman 35 [facility] 2022-08-18 Inpatient JOE Cameron PAN [id number] [facility] 12:30:00 Abdelrahman 33 [facility] 2021-07-11 [facility] [id number] Univers 19:07:[address] [facility] 2021-07-11 Emergency [facility] [id number] Univers 13:53:[address] [facility] 2023-06-05 2023-06-05 Telephone Cookie ISAACS [id number] Univers 00:00:00 00:00:00 , Alexus CHASEY 350.1.13.10 ity of [place] [place] [phone] [facility] 086 Branch 2022-12-07 2022-12-07 Orders Doctor GAY 1.2.840.114 [id number] Univers 00:00:00 00:00:00 Only Unassigned, ANISA 350.1.13.10 ity of [facility] 4.2.7.2.[id number] [facility] 009 Branch 2022-09-29 2022-09-29 Outpatient NISHA MHSE MHSE [id number] MH 07:00:00 23:59:00 ABDELRAHMAN swain [facility] 2022-08-16 2022-08-19 Inpatient ULICES CameronPAN OBPP [id number] [facility] 17:42:00 13:05:00 Abdelrahman 83 [facility] 2022-06-17 2022-06-17 Nurse NurseAftab [facility] 1.2.840 .114 [id number] Univers 11:45:00 12:00:00 Visit Clara MackayPEC 350.1 .13.10 ity of [place] 4.2.7.2.686 [facility] [id number] [address] DIABETES CLINIC 2022-06-17 2022-06-17 Outpatient R KIMBERLEE [facility] [id number] Univers 11:45:00 11:45:[address] [facility] 2022-06-14 2022-06-14 Telephone [facility] 1.2.840.114 [id number] Univers 00:00:00 00:00:00 JOHN metcalf 350.1.13.10 ity of [place] 4.2.7.[address] [place] [phone] [facility]IC 2022-06-08 2022-06-08 Outpatient Aster, SHERRONCL RI [id number] [facility] 10:00:00 10:00:00 Gene 78 [facility] 2022-01-08 2022-01-08 Emergency X COBIAN, [facility] ERT [id number] Univers 11:34:00 14:12:[address] [facility] 2022-01-08 2022-01-08 [facility] [id number] Univers 11:34:00 14:12:00 Located within [facility] 350.1.13.10 it y of [place] 4.2.7.2.686 [facility] [phone] [address] (CLC) 2022-01-08 2022-01-08 Nurse GAY Chapman 1.2.840.114 [id number] Univers 00:00:00 00:00:00 Triage Samanta LANGE 350.1.13.10 ity of [facility] 4.2.7.2.686 [place] [id number] [address] 2021-12-08 2021-12-08 Telephone [facility] 1.2.840.114 [id number] Univers 00:00:00 00:00:00 RIKA metcalfPEC 350.1.13.10 ity [place] [id number] [address] [facility] 2021-12-08 2021-12-08 Patient Doctor GAY 1.2.840.114 [id number] Univers 00:00:00 00:00:00 Secure Msg Unassigned, AINSA 350.1.13.10 ity of [facility] 4.2.7.2.686 [place] as [id number] [address] 2021-12-06 2021-12-06 Outpatient R REX ALVARADO [facility] [id number] Univers 08:33:39 23:59:00 ity of [facility] 2021-12-06 2021-12-06 [facility] Rex Alvarado [facility] 1.2.840.114 [id number] Univers 08:33:39 23:59:00 Encounter [employer] SPECIALTY 350.1.13.10 ity of [place] AT [phone] Pa rachel [facility] [address] [place] [address] 2021-12-06 2021-12-06 Telephone [facility] 1.2.840.114 [id number] Univers 00:00:00 00:00:00 RIKA metcalfPEC 350.1.13.10 ity [place] [id number] [facility] AND [address] DIABETES [facility]INIC 2021-12-06 2021-12-06 Patient Doctor GAY 1.2.840.114 [id number] Univers 00:00:00 00:00:00 Secure Msg Unassigned, ANISA 350.1.13.10 ity of [facility] 4.2.7.2.686 [place] as [id number] [address] 2021-11-16 2021-11-16 Patient Doctor GAY 1.2.840.114 [id number] Univers 00:00:00 00:00:00 Secure Msg Unassigned, ANISA 350.1.13.10 ity of [facility] 4.2.7.2.686 Gut[place]rez [phone] [address] 2021-11-10 2021-11-10 Measurement Psychologist Vtc-Lab [facility] 1.2.840.114 [id number] Univers 15:45:00 16:00:00 Visit Rex Alvarado MULTISPEC 350.1.13.1 0 ity of IALTY 4.2.7.2.686 [facility] [phone] [address] DI[facility]ES [facility]INIC 2021-11-10 2021-11-10 Office Lynn Black [facility] 1 .2.840.114 [id number] Univers 13:30:00 15:42:34 Visit Unknown, Attending MULTISPEC 350.1.13. 10 ity of IALTY 4.2.7.2.686 [facility] s [place] [id number] [address] DIABETES CLINIC 2021-11-10 2021-11-10 Outpatient R UNKNOWN, [facility] [id number] Univers 13:30:00 15:42:34 ATTENDING [facility] 2021-11-10 2021-11-10 Outpatient R UNKNOWN, [facility] [id number] Univers 13:30:00 15:42:34 ATTENDING [facility] 2021-11-10 2021-11-10 Outpatient R UNKNOWN, [facility] [id number] Univers 13:30:00 13:30:[address] [facility] 2021-09-02 2021-09-02 Outpatient R QUINTANILLA, [facility] [id number] Univers 15:00:00 15:00:[address] [facility] 2021-07-25 2021-07-25 Emergency X TRINY, [facility] ERT [id number] Univers 07:52:00 10:48:[address] [facility] 2021-07-25 2021-07-25 Emergency [facility] [id number] Univers 07:52:00 10:48:00 [facility] 350.1.13.10 it y of [place] 4.2.7.2.686 [facility] s [facility] [id number] [address] ([facility]) 2021-07-24 2021-07-24 Nurse GAY Wheatley 1.2.840.114 [id number] Univers 00:00:00 00:00:00 Triage Joe LANGE 350.1.13.10 ity [facility] 4.2.7.2.686 [place] [phone] [address] 2021-07-05 2021-07-05 Emergency [facility] 1.2.021.162 [id number] Univers 16:00:00 18:02:00 [facility] 350.1.13.10 i ty of [facility] 4.2.7.2.686 [facility] [id number] [address] ([facility]) 2021-07-05 2021-07-05 Emergency X CACGALLION, [facility] ERT [id number] Univers 16:00:00 18:02:00 CALLIE [facility] 2021-06-10 2021-06-10 [id number] [address] [place] [address] 00:00:00 00:00:00 SANDRA thompson 2021-02-16 2021-02-16 Nurse Nurse, Vls Plastic Surg [facility] 1. 2.840.114 [id number] Univers 10:39:02 13:20:43 Visit Norbert Cortes 350.1.13.10 ity of CARE 4.2.7.[address] [place] [address] AT [phone] Pa rachel MCGREGOR [address] [place] [address] 2021-02-16 2021-02-16 Outpatient R SOPHIA [facility] [id number] Univers 10:45:00 10:45:[address] [facility] 2021-02-14 2021-02-14 Telephone Sophia [facility] 1.2.262.020 [id number] Univers 00:00:00 00:00:00 Norbert CAI 350.1.13.10 ity of CARE 4.2.7.2.686 [facility] AT [phone] Pa rachel MCGREGOR [address] [place] [address] 2021-02-02 2021-02-02 Hospital Sophia [facility] 1.2.840.114 [id number] Univers 11:11:00 14:21:00 Encounter Norbert Alicea 350.1.13.10 ity of [place] 4.2.7.2.686 [phone] [address] ([facility]) 2021-02-02 2021-02-02 Surgery Sophia [facility] 1.2.840.114 [id number] Univers 13:05:00 14:06:00 Norbertjoe CAI 350.1.13.10 ity of CARE 4.2.7.2.686 [facility] AT [phone] Pa timomadhav TOUREMinerva 0[address] [facility] 2021-02-02 2021-02-02 Orders Doctor RASHID 1.2.840.114 [id number] Univers 00:00:00 00:00:00 Only Unassigned, ANISA 350.1.13.10 ity of [facility] 4.2.7.2.686 Gutierrez as [id number] [address] 2021-01-28 2021-01-28 Outpatient Meri CORTES [facility] [id number] Univers 11:00:00 11:00:[address] [facility] 2021-01-28 2021-01-28 Laboratory Only, Clc Bls Test [facility] 1.2. 840.114 [id number] Univers 10:40:38 10:55:38 Only Norbert Cortes 350.1.13.10 ity of [place] 4.2.7.2.686 [facility] [phone] [address] Office Building 2021-01-28 2021-01-28 Letter GAY [place] 1.2.840.114 [id number] Univers 00:00:00 00:00:00 (Out) Lizbet LANGE 350.1.13.10 i ty of HOSPITAL 4.2.7.2.[phone] [facility] 019 [place] 2021-01-18 2021-01-18 Outpatient Meri CORTES [facility] [id number] Univers 15:30:00 16:18:[address] [facility] 2021-01-18 2021-01-18 Office Sophia [facility] 1.2.840.114 [id number] Univers 15:17:38 16:18:48 Visit Norbert SPECIALTY 350.1.13.10 ity of C[place]2.[place].2.[place] AT [phone] Pa rachel MCGREGOR [address] [place] [address] 2021-01-13 2021-01-13 Office Sarita Olmedo 1.2.840.114 [id number] Univers 14:52:55 16:58:18 Visit , [facility] 350.1.13.10 ity of [place].7.2.686 [place] [id number] [address] 2021-01-13 2021-01-13 Outpatient Meri STEIN [facility] [id number] Univers 15:45:00 15:45:00 , MARY palma [facility] 2021-01-12 2021-01-12 Outpatient R ODALYS [facility] [id number] Univers 13:00:00 13:00:[address] [facility] 2021-01-12 2021-01-12 Case Sarita Olmedo 1.2.840.114 [id number] Univers 00:00:00 00:00:00 Management , [facility] 350.1.13.10 ity of [place] [id number] [address] 2021-01-12 2021-01-12 Telephone Sarita Olmedo 1.2.840.114 [id number] Univers 00:00:00 00:00:00 , Mary Pediatric 350.1.13.10 ity of [place]2.[place].2.[place] [id number] [address] 2020-12-28 2020-12-28 [facility] 1.2.840.114 [id number] Univers 15:33:00 18:55:00 [facility] 350.1.13.10 it y of [place] 4.2.7.2.686 [place] [id number] [address] ([facility]) 2020-12-15 2020-12-15 Office Sarita Olmedo 1.2.840.114 [id number] [facility] 13:44:09 15:53:30 Visit , Mary Pediatric 350.1.13.10 ity of [place] and [place].2.7.2.[place] [id number] [address] Clinic 2020-12-15 2020-12-15 Outpatient R SARITA [facility] [id number] [facility] 15:00:00 15:00:00 , MARY it y of [facility] 2020-06-10 2020-06-10 Outpatient SHANNAN, [facility] [id number] 00:00:00 00:00:00 SANDRA [address] 2020-05-13 2020-05-13 Outpatient SHANNAN, [facility] [id number] [place] 00:00:00 00:00:00 SANDRA 283 [place] 2020-04-19 2020-04-22 Inpatient SHANNAN, [facility] 001 [id number] [address] 00:00:00 00:00:00 SANDRA 826 [place] 2020-04-13 2020-04-13 Outpatient SHANNAN, [facility] [id number] [address] 00:00:00 00:00:00 SANDRA 633 [place] 2020-04-12 2020-04-12 Outpatient SHANNAN, [facility] 090 [id number] [place] 00:00:00 00:00:00 SANDRA 862 [place] 2020-03-30 2020-03-30 Outpatient SHANNAN, [facility] [id number] [address] 00:00:00 00:00:00 SANDRA 234 [place] 2020-03-30 2020-03-30 Outpatient SHANNAN, [facility] [id number] [address] 00:00:00 00:00:00 SANDRA 405 [place] 2020-03-16 2020-03-16 Outpatient SHANNAN, [facility] [id number] [address] 00:00:00 00:00:00 SANDRA 787 [place] 2020-03-02 2020-03-02 Outpatient SHANNAN, [facility] [id number] [address] 00:00:00 00:00:00 SANDRA 755 [place] 2020-02-17 2020-02-17 Outpatient SHANNAN, [facility] [id number] [address] 00:00:00 00:00:00 SANDRA 419 [place] 2020-01-20 2020-01-20 Outpatient SHANNAN, [facility] [id number] [address] 00:00:00 00:00:00 SANDRA 962 [place] 2019-12-16 2019-12-16 Outpatient SHANNAN, [facility] [id number] [place] 00:00:00 00:00:00 SANDRA 383 [place] 2019-11-18 2019-11-18 Outpatient SHANNAN, [facility] [id number] [place] 00:00:00 00:00:00 SANDRA 998 [address] 2019-09-27 2019-09-27 Emergency [place] 1.2.840.114 [id number] [facility] 15:44:21 18:57:00 , [facility] 350.1.13.10 [place] 4.2.7.2.686 Esteban Bernard [phone] [address] ([facility]) Results Test Description Test Time Test Comments Results Result Comments Source SURGICAL 2022-08-18 14:37:00 Test Item Value Reference Range Interpretation Comme nts SURGICAL RUN (test DATE: 08/18/22 [place] - LAB PAGE 1 RUN TIME: 1437 Specimen Inquiry RUN USER: INTERFACE code = SAJI SR) ENT: MALI MTZ LOC: MATT U #: [id number] AGE/SX: 22/F ROOM: [facility] RE08/16/22REG DR: Abdelrahman Cameron MD : 98 BED: 1 DIS: STATUS: ADM IN TLOC: SPEC #: [id number] RECD: 1 10/18/21 STATUS: SAULO RE #: [id number] GAYLE: 08/16/22 DR: Abdelrahman Cameron MD ENTERED: SP TYPE: SURGICAL OTHR DR: Nettie Ramirez MD, JR, Patrick MDORDERED: [id number], ANATOMIC SPEC COPIES TO: Nettie Ramirez MD [address] [place], [place] [address] [address] Ralph Keen JR, MD [address] [address] Sandro Cameron MD [address] [facility] [address] [place], [place] [id number] PROCEDURES: [id number] (08/17/221006) TISSUES: A. PLACENTA, THIRD TRIMESTER (28 + WEEKS) CLINICAL HISTORY SAME, DELIVERED LISA L DIAGNOSIS Placenta: Third trimester placenta with acute chorionitis, deciduitis; 271 g (expected baps312 g); trivascular umbilical cord with no significant inflammation, 1 false knot. GROSS DESCRIPTION Received is a placenta measuring 13 x 11.5 x 2.4 cm with attached umbilical cord bxzvupjaj89 cm in length, 0.7 cm in diameter, with 1 false knot, arising 4.5 cm f rom the margin. Sections are submitted as A-D. The maternal surface appears intact with attached bloodclots. The placenta weighs 271 g. Technical component performed at [facility],[address] [place] [address], [place] [address] CONTINUED ON NEXT PAGE RUN DATE: 08/18/22 [place] - LAB PAGE 2 RUN TIME: 1437 Specimen Inquiry RUN USER: INTERFACE SPEC #: [id number] PATIENT: MALI MTZ #[id number] (Continued) ------- GROSS DESCRIPTION (C ontinued) Unless gross only, the diagnosis is based upon microscopic examination.Immunohistochemistry: This test was developed and its performance characteristicsdetermined by this laboratory. It has not been approved nor does it need approvalby the [place] FDA. Appro priate positive and negative controls are reviewed and judgedto be acceptable. This laboratory is certified under the Clinical Laboratory ImprovementAmendments (CLIA-88) as qualified to pe rform high complexity clinical laboratory testing. CLINICAL INFORMATION REPEAT C/S, NRFHT - Signed Ivone Quiñones 08/18/22 143 END OF REPORT RAPID PLASMA [id number] 10:44:00 Test Item Value Reference Range Interpretation Comments RAPID PLASMA REAGIN (test code = NONREACTIVE NONREACTIVE RPR) AG HEPATITIS B [id number] 10:44:00 Test Item Value Reference Range Interpretation Comments AG HEPATITIS B SURFACE NON REACTIVE INDEX NonReactive (test code = HBSAG) AB HIV 1 10:44:00 Test Item Value Reference Range Interpretation Comments AB HIV 1 2 (test code = SUA32HB) Nonreactive Nonreactive COMPREHENSIVE METABOLIC [id number] 07:58:00 Test Item Value Reference Range Interpretation Comments SODIUM (test code = 137 mEq/L 134-147 N NA) POTASSIUM (test code 4.2 mEq/L 3.4-5.0 N = K) CHLORIDE (test code 106 mEq/L 100-108 N = CL) CARBON DIOXIDE (test 22 mEq/l 21-33 N code = CO2) ANION GAP (test code 13 0-20 N = GAP) GLUCOSE (test code = 91 mg/dL 70-110 N GLU) BLOOD UREA NITROGEN < 5 mg/dL 7-18 L (test code = BUN) GLOMERULAR 128.5 110-120 H The Glomerular FILTRATION RATE Filtration R ate is a (test code = GFR) calculated parameterbased on serum Creatinin e, patient age and sex. GFR valuesless than 60 mL/min/1.73 squ are meters are julian cative ofChronic Kidne y Disease. Values less than 15 mL/min/1.73squa re meters indicate Kidney failure. The calculation for GFR is based on the CK D-EPI (2020) calculat ion. This formulais race indifferent and is the recommended for jas for GFRby the N ational Kidney Foundati on for Adults.The GFR will not calculate i f the sex is unknown or if thepatient's ag e is <18 years. CREATININE (test 0.6 mg/dL 0.6-1.3 N code = CREAT) TOTAL PROTEIN (test 6.0 g/dL 6.4-8.2 L code = PROT) ALBUMIN (test code = 2.70 g/dL 3.4-5.0 L ALB) CALCIUM (test code = 9.3 mg/dL 8.0-10.5 N CA) BILIRUBIN TOTAL 0.40 mg/dL 0.0-1.0 N (test code = BILT) SGOT/AST (test code 14 IUnit/L 15-37 L = AST) SGPT/ALT (test code 13 IUnit/L 30-65 L = ALT) ALKALINE PHOSPHATASE 159 IUnit/L 20-125 H TOTAL (test code = ALKP) CBC W/AUTO [id number] 07:01:00 Test Item Value Reference Range Interpretation Comments WHITE BLOOD CELL (test code = 12.8 x10 3/uL 4.5-11.0 H WBC) RED BLOOD CELL (test code = 3.63 x10 6/uL 3.54-5.02 N RBC) HEMOGLOBIN (test code = HGB) 10.9 g/dL 11.0-15.0 L HEMATOCRIT (test code = HCT) 32.4 % 33.0-45.0 L MEAN CELL VOLUME (test code = 89.3 fL 81.0-99.0 N MCV) MEAN CELL HGB (test code = MCH) 30.0 pg 27.0-33.0 N MEAN CELL HGB CONCETRATION 33.6 g/dL 33.0-37.0 N (test code = MCHC) RED CELL DISTRIBUTION WIDTH CV 13.4 % 11.5-14.5 N (test code = RDW) RED CELL DISTRIBUTION WIDTH SD 43.7 fL 37.0-54.0 N (test code = RDW-SD) PLATELET COUNT (test code = 228 x10 3/uL 150-400 N PLT) MEAN PLATELET VOLUME (test code 9.4 fL 7.0-9.0 H = MPV) NEUTROPHIL % (test code = NT%) 76.2 % 56.0-77.0 N IMMATURE GRANULOCYTE % (test 0.4 % 0.0-2.0 N code = IG%) LYMPHOCYTE % (test code = LY%) 17.6 % 14.0-32.0 N MONOCYTE % (test code = MO%) 5.7 % 4.8-9.0 N EOSINOPHIL % (test code = EO%) 0.0 % 0.3-3.7 L BASOPHIL % (test code = BA%) 0.1 % 0.0-2.0 N NUCLEATED RBC % (test code = 0.0 % 0-0 N NRBC%) NEUTROPHIL # (test code = NT#) 9.73 x10 3/uL 2.0-7.6 H IMMATURE GRANULOCYTE # (test 0.05 x10 3/uL 0.00-0.03 H code = IG#) LYMPHOCYTE # (test code = LY#) 2.25 x10 3/uL 1.0-3.8 N MONOCYTE # (test code = MO#) 0.73 x10 3/uL 0.1-0.8 N EOSINOPHIL # (test code = EO#) 0.00 x10 3/uL 0.0-0.2 N BASOPHIL # (test code = BA#) 0.01 x10 3/uL 0.0-0.2 N NUCLEATED RBC # (test code = 0.00 x10 3/uL 0.0-0.1 N NRBC#) MANUAL DIFF REQUIRED (test code NO = MDIFF) CORD VENOUS BLOOD [id number] 20:30:00 Test Item Value Reference Range Interpretation Comments CORD VENOUS PH (test code = PHCV) 7.29 7.25-7.45 N CORD VENOUS PCO2 (test code = 48 mmHg 27-49 N PCO2CV) CORD VENOUS PO2 (test code = 17 mmHg 17-41 N PO2CV) CORD VENOUS HCO3 (test code = 23.1 MMOL/L 12-28 N HCO3CV) CORD VENOUS BASE EXCESS (test -3.5 mmol/L -8.0-0.00 N code = BEXCV) CORD VENOUS 02 SAT (test code = 20 % O2SCV) CORD ARTERIAL BLOOD [id number] 20:28:00 Test Item Value Reference Range Interpretation Comments CORD BLOOD PH (test code = PH/C) 7.22 7.18-7.38 N CORD BLOOD PCO2 (test code = 63 mmHg 32-66 N PCO2/C) CORD BLOOD PO2 (test code = 6 mmHg 6-30 N PO2/C) CORD BLOOD HCO3 (test code = 25 mmol/L 17-27 N HCO3/C) BASE EXCESS CORD (test code = -2.4 mmol/L -8.0-0.0 N FATUMA/C) AMNISURE (ROM) [id number] 17:54:00 Test Item Value Reference Range Interpretation Comments AMNISURE (ROM) TEST (test code = NEGATIVE NEGATIVE AMNI) CBC W/AUTO [id number] 17:51:00 Test Item Value Reference Range Interpretation Comments WHITE BLOOD CELL (test code = 11.5 x10 3/uL 4.5-11.0 H WBC) RED BLOOD CELL (test code = 4.48 x10 6/uL 3.54-5.02 N RBC) HEMOGLOBIN (test code = HGB) 13.3 g/dL 11.0-15.0 N HEMATOCRIT (test code = HCT) 39.1 % 33.0-45.0 N MEAN CELL VOLUME (test code = 87.3 fL 81.0-99.0 N MCV) MEAN CELL HGB (test code = MCH) 29.7 pg 27.0-33.0 N MEAN CELL HGB CONCETRATION 34.0 g/dL 33.0-37.0 N (test code = MCHC) RED CELL DISTRIBUTION WIDTH CV 13.7 % 11.5-14.5 N (test code = RDW) RED CELL DISTRIBUTION WIDTH SD 43.6 fL 37.0-54.0 N (test code = RDW-SD) PLATELET COUNT (test code = 263 x10 3/uL 150-400 N PLT) MEAN PLATELET VOLUME (test code 9.1 fL 7.0-9.0 H = MPV) NEUTROPHIL % (test code = NT%) 66.5 % 56.0-77.0 N IMMATURE GRANULOCYTE % (test 0.4 % 0.0-2.0 N code = IG%) LYMPHOCYTE % (test code = LY%) 29.0 % 14.0-32.0 N MONOCYTE % (test code = MO%) 3.6 % 4.8-9.0 L EOSINOPHIL % (test code = EO%) 0.3 % 0.3-3.7 N BASOPHIL % (test code = BA%) 0.2 % 0.0-2.0 N NUCLEATED RBC % (test code = 0.0 % 0-0 N NRBC%) NEUTROPHIL # (test code = NT#) 7.66 x10 3/uL 2.0-7.6 H IMMATURE GRANULOCYTE # (test 0.05 x10 3/uL 0.00-0.03 H code = IG#) LYMPHOCYTE # (test code = LY#) 3.34 x10 3/uL 1.0-3.8 N MONOCYTE # (test code = MO#) 0.41 x10 3/uL 0.1-0.8 N EOSINOPHIL # (test code = EO#) 0.03 x10 3/uL 0.0-0.2 N BASOPHIL # (test code = BA#) 0.02 x10 3/uL 0.0-0.2 N NUCLEATED RBC # (test code = 0.00 x10 3/uL 0.0-0.1 N NRBC#) MANUAL DIFF REQUIRED (test code NO = MDIFF) URINALYSIS [id number] 17:03:00 Test Item Value Reference Range Interpretation Comments UA COLOR (test code = COLU) YELLOW YEL/STRAW UA APPEARANCE (test code = SL CLOUDY CLEAR APPU) UA GLUCOSE DIPSTICK (test code NEGATIVE NEGATIVE = DGLUU) UA BILIRUBIN DIPSTICK (test NEGATIVE NEGATIVE code = BILU) UA KETONE DIPSTICK (test code = 1+ NEGATIVE A KETU) UA SPECIFIC GRAVITY (test code 1.009 1.005-1.030 N = SGU) UA BLOOD DIPSTICK (test code = 1+ NEGATIVE A RICHARD) UA PH DIPSTICK (test code = 7.0 5.0-7.0 N SOLA) UA PROTEIN DIPSTICK (test code NEGATIVE NEGATIVE = PROU) UA UROBILINIOGEN DIPSTICK (test 0.2 mg/dL 0.2-1.0 code = URO) UA NITRITE DIPSTICK (test code NEGATIVE NEGATIVE = HUSAM) UA LEUKOCYTE ESTERASE DIPSTICK 1+ NEGATIVE A (test code = LEUU) UA RBC (test code = RBCU) 11-20 RBC/HPF 0-3 UA WBC NO REFLEX (test code = 4-9 WBC/HPF 0-3 A WBCUCL) UA BACTERIA (test code = BACU) 1+ /HPF NONE SEEN A UA SQUAMOUS CELLS (test code = 6-10 /HPF NONE SEEN A SQU) UA MUCUS (test code = MUCU) TRACE /LPF NONE SEEN COMP. METABOLIC PANEL (06620)2022-01-08 17:26:58 Test Item Value Reference Range Interpretation Comments NA (test code = 137 mmol/L 135-145 5621465414) K (test code = 4.1 mmol/L 3.5-5.0 5525140975) CL (test code = 105 mmol/L 98-108 4935608748) CO2 TOTAL (test code = 20 mmol/L 23-31 L 5417269160) AGAP (test code = 2-16 5110957826) BUN (test code = 13 mg/dL 7-23 5718135658) GLUCOSE (test code = 87 mg/dL 70-110 1407745809) CREATININE (test code = 0.66 mg/dL 0.50-1.04 9981924959) TOTAL BILI (test code = 0.4 mg/dL 0.1-1.8 6512401415) CALCIUM (test code = 9.6 mg/dL 8.6-10.6 9942444736) T PROTEIN (test code = 7.5 g/dL 6.3-8.2 2306457184) ALBUMIN (test code = 4.4 g/dL 3.5-5.0 4802612205) ALK PHOS (test code = 83 U/L 34-122 2200040507) ALTv (test code = 44 U/L 5-35 H 1742-6) AST(SGOT) (test code = 28 U/L 13-40 8051754444) eGFR (test code = mL/min/1.73m2 4176437810) JUVENCIO (test code = JUVENCIO) Association of Glomerular Filtration Rate (GFR) and Staging of Kidney Disease* + --+ --+ ------+| GFR (mL/min/1.73 m2) ?| With Kidney Damage ?| ?Without Kidney Damage+ --------+ --------+ +| ?>90 ?| ?Stage one ?| ? Normal ?+ ---+ ---+ -------+| ?60-89 ?| ?Stage two ?| ? Decreased GFR ? + --+ --+ ------+| ?30-59 ?| ?Stage three ?| ? Stage three ? + --+ --+ ------+| ?15-29 ?| ?Stage four ? | ? Stage four ?+ ---+ ---+ -------+| ?<15 (or dialysis) ? ?| ?Stage five ? | ? Stage five ?+ ---+ ---+ -------+ *Each stage assumes the associated GFR level has been in effect for at least three months. ?Stages 1 to 5, with or without kidney disease, indicate chronic kidney disease. Notes: Determination of stages one and two (with eGFR >59mL/min/1.73 m2) requires estimation of kidney damage for at least three months as defined by structural or functional abnormalities of the kidney, manifested by either:Pathological abnormalities or Markers of kidney damage (including abnormalities in the composition of the blood or urine or abnormalities in imaging tests). Lab Interpretation Abnormal (test code = 30628-2) [facility] [id number] 17:23:00 Test Item Value Reference Range Interpretation Comments On board controls acceptable with POSITIVE C Line (test code = 3574) POCT PREG LOT # (test code = 3575) [id number] POCT PREG TEST DATE (test 06/10/2023 code = 3576) Lab Interpretation (test code = Normal 93229-4) [facility] WITH [id number] 17:08:16 Test Item Value Reference Range Interpretation Comments WBC (test code = See_Comment [Automated 2463-2) message] The sy stem which generated this result transmitted reference range : 4.30 - 11.10 10*3/?L. The reference range was not used to interpret this result as normal/abnormal . RBC (test code = See_Comment [Automated 061-4) message] The sy stem which generated this result transmitted reference range : 3.93 - 5.25 10*6/?L. The reference range was not used to interpret this result as normal/abnormal . HGB (test code = 13.4 g/dL 11.6-15.0 718-7) HCT (test code = 38.9 % 35.7-45.2 4544-3) MCV (test code = 84.6 fL 80.6-95.5 787-2) MCH (test code = 29.1 pg 25.9-32.8 785-6) MCHC (test code = 34.4 g/dL 31.6-35.1 786-4) RDW-SD (test code = 38.7 fL 39.0-49.9 L 59302-9) RDW-CV (test code = 12.7 % 12.0-15.5 788-0) PLT (test code = See_Comment [Automated 777-3) message] The sy stem which generated this result transmitted reference range : 166 - 358 10*3/ ?L. The reference r cherelle was not used to interpret this result as normal/abnormal . MPV (test code = 9.3 fL 9.5-12.9 L 46015-2) NRBC/100 WBC (test See_Comment [Automat ed code = 0289497586) message] The system which generated this result transmitted reference range : 0.0 - 10.0 /100 WBCs. The refer ence range was not u sed to interpret th is result as normal/abnormal . NRBC x10^3 (test code <0.01 See_Comment [Auto mated = 7988786095) message] The s ystem which generated this result transmitted reference range : 10*3/?L. The reference range was not used to interpret this result as normal/abnormal . GRAN MAT (NEUT) % 61.9 % (test code = 770-8) IMM GRAN % (test code 0.20 % = 5458607083) LYMPH % (test code = 31.4 % 736-9) MONO % (test code = 5.4 % 5905-5) EOS % (test code = 0.8 % 713-8) BASO % (test code = 0.3 % 706-2) GRAN MAT x10^3(ANC) 6.30 10*3/uL 1.88-7.09 (test code = 2997538986) IMM GRAN x10^3 (test <0.03 0.00-0.06 code = 1558859536) LYMPH x10^3 (test code 3.20 10*3/uL 1.32-3.29 = 731-0) MONO x10^3 (test code 0.55 10*3/uL 0.33-0.92 = 742-7) EOS x10^3 (test code = 0.08 10*3/uL 0.03-0.39 711-2) BASO x10^3 (test code 0.03 10*3/uL 0.01-0.07 = 704-7) Lab Interpretation Abnormal (test code = 07585-3) [id number] Test Item Value Reference Range Interpretation Comments POCT PREG (test code = Negative repor monique out to pcp 1605) On board controls Yes acceptable with C Line (test code = 3574) POCT PREG LOT # (test code = 3575) POCT PREG TEST DATE (test code = 3576) [facility] RNA [Presence] in Respiratory specimen by MONICA with probe [id number] 12:31:19 Test Item Value Reference Range Interpretation Comments SARS-CoV-2 (COVID-19) RNA Not detected Not-Detected [Presence] in Respiratory specimen by MONICA with probe detection (test code = 13283-4) [facility] Notes Date/Time Note Provider Source 2022-09-01 13:34:00 [id number] [facility] [address] [address] PATIENT NAME: MALI MTZ ADMIT DATE: 08/16/22ACCOUNT NO: [id number] ROOM NO: G.430 AGE: 22 REPORT TYPE: 360 - QUERY RESPONSE DOCUMENT SEX: F ADMITTING PHYSICIAN:Abdelrahman Cameron MD ATTENDING PHYSICIAN:Abdelrahman Cameron MD Provider Query QUERY TEXT: Clarification Pathology 360MD Query relate d questions should be directed to:[facility] Coding Query Helpline Based on your clinical judgment, can you confirm the diagnosis that represents the pathology finding(s) of [Acute chorionitis]? Reporting of pathology findings require confirmation by the attending physician and/or surgeon. The patient's Clinical Indicators include:Acute chorionitis-PATHOLOGY 08/19/22Options provided:-- I am in agreement-- I am not in agreement-- Other - I will add my own diagnosis-- Dismiss - Not applicable / Not valid-- Dismiss - Clinically unable to determine / Unknown-- Assign to another provider QUERY RESPONSE: Yes, I am in agreement with the pathology finding(s) noted above. Query created by: Denisha Jim on 08/22/2022 3:56 AM QUER Y TEXT: Condition Blood 360MD Query related questions should be directed to: [facility] Codin g Query Helpline Based on your clinical judgment, can you provide the known or suspected condition(s) that represent(s) the clinical indicators listed below? The medical record reflects the diagnosis/procedure of [anemia] and associated [C SECTION delivery]. [Operative Note - Full08/26/22]: The patient's Clinical Indicators include:HEMATOCRIT (%) 32.4L 08/17 39.1 08/16 -LAB RESULTSHEMOGLOBIN (g/dL) 10.9L 13.3repeat section via pfannenstiel skin incisio-Operative Note - Full08/26/22Estimated blood loss was 350cc-Operative Note - Full 08/16/22FERROUS SULFATE 325 MG TABLET ORAL-MAR 08/17/22Options provided:-- Blood loss anemia, Please specify th e acuity (i.e., acute, chronic, acute on chronic).-- Anemia of chronic disease, Please specify the chronic disease.-- Iron deficiency anemia-- Chemotherapy induced anemia, Please specify drug.-- Drug induced anemia, Please specify drug.-- Idiopathic aplastic anemia-- Neoplastic anemia-- Other - I will add my own diagnosis-- Dismiss - Not applicable / Not valid-- Dismiss - Clinically unable to determine / Unknown-- Assign to another provider QUERY RESPONSE: acute blood loss anemia Query created by: Denisha Jim on 08/22/2022 4:02 AM at 1334 PATIENT NAME: MALI MTZ noteG.[id number] for patient rotlIYSRCBDBSSPXUE7647-60-66L77:35:44 2022-08-18 14:06:00 [id number]:06:00 [facility] [place] ([facility])OB Disch PostpartumREPORT#:[id number] REPORT STATUS: SignedDATE:08/18/22 TIME: 1406 PATIENT: MALI MTZ UNIT #: [id number]#: [id number] [address] AGE: 22 SEX: F ATTEND: Abdelrahman Cameron [facility] DT: 2 AUTHOR: Abdelrahman Cameron MD * ALL edits or amendments must be made on the electronic/computer document * Subjective SubjectiveAdmission EGA: Weeks: 39 Days: 0Patien t reports: Patient reports: Yes: normal lochia, pain management effective, tolerating po well, voiding well, voiding without pain, tolerating ambulation, flatus. No: complaints, bowel movement, nausea, vomiting, excessive bleeding, abdominal pain, perineal pain, headache, blurred vision. Objective GeneralVS:Vital Signs Date Tem p Pulse Resp B/P B/P Mean Pulse Ox FiO2 08/17-08/18 36.5-36.9 78-93 17-18 103-111/69-72 96-98 Last Documented: Result Date Time Pulse Ox 98 08/18 813 B/P 103/71 08/18 813 Temp 36.6 08/18 813 Pulse 78 08/18 813 Resp 18 08/18 081 3 B/P Mean 83.0 08/16 2327 PATIENT WEIGHT: Weight (lb): 206Weight (oz): 5.64Weight (kg): 93.600 Physical ExamLungs: unlabored breathingAbdomen: post gravid, soft, no abnormal tendernessUterus: involution appropriate, non-tenderFundus: below the umbilicus, non-tenderLochia: normal Discharg e Summary GeneralProblem List/A P: 1. Previous section 2. Postop check 3. state Assessment: nml progressHospita l course: repeat admit, nml postop/postpart careDischarge condition: stableDischarge to: Home/Self CareDischarge diagnosis: full-term uncomp deliveryBaby A: Omayra h status: live born Gender: female 1 minute: 8 5 minutes: 9 Anomalies:cleft lip Discharge InstructionsInstructions: routine inst r sheet given, instr and warnings rev'dDiet: RegularActivity: As Tolerated, No [place] fo r 6 Wks, No Lifting >10lbs, No SwimmingAdditional discharge routines: Attending Follow-Up at 1408 RPT #:[id number] OF REPORTCLClinical qrym1166-46-05R69:06:00G.[id number] l able for patient twgwWWTCGAELBGJAWF1399-20-80Z05:08:26 2022-08-17 14:34:00 [id number]:34:00 [facility] ([facility])Pain Management Progress NoteREPORT#:[id number] REPORT STATUS: SignedDATE:08/17/22 TIME: 1434 PATIENT: MALI MTZ UNIT #: [id number]#: [id number] [address] AGE: 22 SEX: F ATTEND: Abdelrahman Cameron [facility] DT: 2 AUTHOR: Marky Tyler MD * ALL edits or amendments must be made on the electronic/computer document * Objective GeneralVS/I O:POD # 1Chief Complaint: abdominal pain, s/p sectionEpidural CatheterPatient seen and examinedMoving legsCurrent pain scale 2/10 Pain relieved by epiduralCurrent patient activity level resting i n bedNo side effects noted. Assessment and plan: Pain is well controlled. Epidural placed for c/section due to duramorph allergy. Anesthesia will continue to follow. Vital SignsDate Temp Pulse Resp B/P B/P Mean Pulse Ox ChJ133/06-08/17 36.6-37.2 76-121 16-20 103-128/55-75 75.0-93.0 84-100 Last Documented: Result Date Time Pulse O x 98 08/17 1200 B/P 110/69 08/17 1200 Temp 37.2 08/17 1200 Pulse 90 08/17 1200 Resp 18 08/17 120 0 B/P Mean 83.0 08/167 24 hour I O ending at 0700: 08/17 0700 08/16 1900 Intake Total 1250 1000 Output Total 1393 Balance -143 1000 Weight 2.540 Blood Loss 332 Quantification Method Intake, Other 1250 1000 Output, Other 139 3 Patient 93.6 kg Weight PATIENT WEIGHT: Weight (lb): 206Weight (oz): 5.64Weight (kg): 93.600 at 1436 RPT #:[id number] OF REPORTPRProgress [id number]:34:00G.[id number] l able for patient oeasFAMVQMLMSEOAQN6642-06-08X42:36:48 2022-08-17 12:42:00 [id number]:42:00 [facility] ([facility])OB Postpart Progr NoteREPORT#:[id number] REPORT STATUS: SignedDATE:08/17/22 TIME: 1242 PATIENT: MALI MTZ UNIT #: [id number]#: [id number] [address] AGE: 22 SEX: F ATTEND: Abdelrahman Cameron DT: 2 AUTHOR: Abdelrahman Cameron MD * ALL edits or amendment s must be made on the electronic/computer document * Subjective SubjectiveAdmission EGA: Weeks: 39 Days: 0Patient reports: Patient reports: Yes normal lochia, Yes pain management effective, Ye s tolerating po well, Yesvoiding well, Yes voiding without pain, Yes tolerating ambulation, Yes flatus, No no complaints, No bowel movement, No nausea, No vomiting, No excessive bleeding, No abdominal pain, No perineal pain, No headache, N o blurred vision Objective Nursing Documentation ReviewNursing Data:The data set between the aaron d lines has been imported from nursing documentation. Any exceptions have been noted below under Provider comments. _ Feeding preference: Post hemorrhage risk score: High Risk for Hemorrhage. _ Provider comments on imported nursing data: [] GeneralVS:Vital Signs: Date Time Temp Pulse Resp B/P B/P Pulse O2 O2 Flow FiO2 Mean Ox Delivery Rate 08/17 720 36.7 76 17 103/71 99 08/17 0438 36.6 90 16 106/72 98 08/17 0000 36.9 78 16 113/7 0 98 08/16 2327 83.0 08/16 2327 85 112/59 08/16 2323 85 99 08/16 2321 77.0 08/16 232 80 115/56 08/16 2315 92 84 08/16 2308 88 99 08/16 225 20 08/16 225 80.0 08/16 225 79 110/60 08/16 2253 78 99 08/16 2242 78.0 08/16 2242 94 18 109/63 08/16 2238 88 98 08/16 2227 79.0 08/16 2227 83 20 110/58 08/16 2223 83 98 08/16 2212 78.0 12/06 2212 36.6 93 20 106/58 12/ 2208 93 98 12/06 2157 20 12/ 2157 83.0 /2156 89 116/61 /2152 96 99 12/2 80.0 12/2141 102 20 114/64 /2137 97 99 12/2126 88.0 /2126 98 20 120/66 08/16 2123 106 99 /2111 79.0 08/16 2112 95 20 116/58 08/16 2108 102 100 /2056 86.0 08/16 2057 92 128/60 / 205 36.9 18 08/16 204 113 100 12/ 1852 85.0 12/0 6 1852 110 114/69 08/16 1837 83.0 12/ 1837 108 110/68 12 1807 91.0 12/ 1807 106 118/73 / 1753 83.0 12/ 1753 121 114/63 12 1737 93.0 12/ 1737 116 122/75 12/ 1707 85.0 12/0 6 1707 104 110/69 12/06 1652 80.0 12/06 1652 98 105/65 12/ 1637 82.0 12/ 1637 104 109/66 12/ 1607 78.0 12/06 1607 113 105/60 12/06 1552 79.0 12/ 1552 101 110/58 12/06 1550 36.9 12/ 1537 75.0 12/ 1537 110 107/55 PATIENT WEIGHT: Weight (lb): 206Weight (oz): 5.64Weight (kg): 93.600 Physical ExamAbdomen: soft, no abnormal tenderness, no guardingUterus: involution appropriate, non-tenderFundus: below the umbilicus, non-tenderLochia: normalLower extremities: Edema: none Calf tenderness: negative Diagnosis, Assessment Plan Diagnosis, Assessment PlanProblem List/A P: 1. Previous section 2. Postop check 3. state Assessment: nml progress at 1244 RPT #:[id number] OF REPORTPRProgress jtul0151-82-82R61:42:00G.[id number] l able for patient [id number]:44:33 2022-08-16 18:43:00 [id number]:43:00 [facility]OB Delivery NoteREPORT#:[id number] REPORT STATUS: SignedDATE:08/16/22 TIME: 1842 PATIENT: MALI MTZ UNIT #: [id number]#: [id number] [address] AGE : 22 SEX: F ATTEND: Abdelrahman Cameron [facility] DT: 2 AUTHOR: Abdelrahman Cameron MD * ALL edits or amendment s must be made on the electronic/computer document * OB Delivery Pre-deliveryAdmission EGA: Weeks: 39 Days: 0 Blood Loss/DetailsBlood loss at delivery: <1K: no sx hypovol=no hemEBL at delivery (ml's): 350 Baby A InformationBaby A information Delivery date: 08/16/22 Delivery time: 2001 status: live born Wt of baby (grams): 2540 Wt of baby (lbs/oz): 5lb 9oz Gender: female 1 minute: 8 5 minutes : 9 Presentation: vertex Anomalies:cleft lip Delivery DeliveryCesarean section indication: elective repeat , cats II heart tracing Priority: indicated (add on) Antibiotic prior to incision: 1 dose )(SCDs applied activated: Yes Uterine incision: low transverse Consent: indication discussed, questions answered, pt consent to op delivery Mother's condition: mother stable 's condition: infant stable in room at 2048 RPT #:[id number] OF REPORTCLClinical [id number]:43:00G.[id number] l able for patient [id number]:48:50 2022-08-16 18:36:00 [id number]:36:00 [facility] ([facility])Operative Note - FullREPORT#:[id number] REPORT STATUS: SignedDATE:08/16/22 TIME: 1835 PATIENT: MALI MTZ UNIT #: [id number]#: [id number] [address] AGE: 22 SEX: F ATTEND: Abdelrahman Cameron DT: 2 AUTHOR: Abdelrahman Cameron MD * ALL edits or amendment s must be made on the electronic/computer document * Operative ReportStart date: 08/16/22Start time : 1929Pre-procedure diagnosis:cat II FHT, multiple anomalies, history of c/sx3, multiparity desiring sterilizationPost-procedure diagnosis:same, deliveredProcedures performed:repeat section via pfannenstiel skin incision and low transverse uterine incisionTechnique/Procedure:Under regional anaesthetic with a espinal catheter inserted, the patient was prepped and draped in the usual sterile fashion in the supine position with a leftward tilt. A Pfannensteil incision wa s made using the knife. The incision was carried down to the fascia with Bovie cautery. The fasci a was incised transversely and dissected off the rectus muscle using sharp dissection and Bovie cautery. The peritoneum was entered sharply and extended sharply and using Bovie cautery taking care not to injure the bladder. The lower segmen t wasassessed and a low transverse incision was made using the knife and extended bluntly. The fetus was presenting as a vertex. The head was delivered without difficulty followed by the res t of the body atraumatically. The cord was clamped twice and cut and the baby transferred to the warmer, awaiting the pediatric staff. A cord segment and cord blood were obtained. The placenta was then delivered manually. The uterus was explored and was empty of all tissue. The uterus was not able to be exteriorized secondary to dense adhesions. The uterine incision was the n closed with 0-vicryl suture. Ebrxtl-ih-upaey sutures were used for hemostasis. Tubes and ovaries were not able to be visualized secondary to dense adhesions. Pelvic anatomy explored and decision made not to proceed with salpingectomy secondary to dense adhesions and risk of bleedin g and injury to surrounding organs. The hysterotom y was inspected and found to be hemostatic. The muscle was closedusing 2-0 chromic interupted sutures. The fascia was closed with 0-vicryl in a running unlocked fashion. The subcutaneous tissu e was closed using interrupted plain gut sutures. The skin was then reapproximated with a running vicryl subcuticular suture. At the end of the procedure all sponges, instruments, and sharps were counted and correct. Estimated blood loss was 350cc. The patient and baby were taken to e recovery in stable condition. Primary Surgeon: NishaAssistant(s): MADDIE Olivareznesthesia: regional anesthesiaOperative findings:dense adhesions of bladder to anterior lower segment of uterus, fascia to uterus, unabl e to visualize upper abdomen or adnexaComplications: noneEstimated blood loss in ml's: 350ccSpecimens removed/altered: placenta and cordImplant(s): none at 2048 RPT #:[id number] OF REPORTOPOperative [id number]:36:00G.[id number] a ilable for patient [id number]:48:50 2022-08-16 18:31:00 [id number]:31:00 [facility] PREPORT#:[id number] REPORT STATUS: SignedDATE:08/16/22 TIME: 1830 PATIENT: MALI MTZ UNIT #: [id number]#: [id number] [address] AGE: 22 SEX: F ATTEND: Abdelrahman Cameron MDADM DT: 2 AUTHOR: Abdelrahman Cameron MD * ALL edits or amendment s must be made on the electronic/computer document * OB HistoryChief complaint: blurry visionHPI:22yo at 38w5d GA presented to triage with blurry vision secondary to newprescription. No evidence of PIH/preeclampsia . FHT cat II intriage. Pt with h/o c/sx3. Pregnanc y complicated by multple anomalies including absent corpus collosum, ventriculomegaly, and cleft lip confirmed with MRI. Declined direct genetic testing, NIPT low risk. Plan for repeat c/s with sterilization. history: : 5 Term: 3 Abortus: 1 Living children: 3Current : Admission EGA (weeks) 39 Admission EGA (days) 0 Past HistoryPast Surgical History:Reports: Appendectomy, , Tonsillectomy. Alcohol Use Denies EtOH useDrug Use Denies recreational drugsSmoking status for patients 13 years old or older: Never SmokerOthe r Social History Local residentAllergies:Coded Allergies:Penicillins (Severe, rash, hives, swelling 08/16/22)morphine (Severe, SEIZURES 08/16/22)amoxicillin (From AUGMENTIN) (Intermediate, FACIAL SWELLING 08/15/22)clavulanic acid (From AUGMENTIN) (Intermediate, FACIAL SWELLING 08/15/22) Review of SystemsConstitutional:Denies: chills, fatigue , fever. Respiratory:Denies: SOB. Cardiovascular:Denies: chest pain. GI:Denies: diarrhea, vomiting. :Reports: , previous pregnancies. Denies: vaginal bleeding, vaginal discharge. Objective GeneralVS:Last Documented: Result Date Time B/P Mean 83.0 08/16 1753 B/P 114/63 08/16 1753 Pulse 121 08/16 1753 Temp 36.9 08/16 1550 Vital Signs Date Temp Pulse Resp B/P B/P Mean Pulse Ox FiO2 08/16 36.9 98-12 1 105-122/55-75 75.0-93.0 PATIENT WEIGHT: Weight (lb): 206Weight (oz): 5.64Weight (kg): 93.600 Physical ExamLungs: unlabored breathingCervical/ exam: Dilatation (cm): 0 - closed Diagnosis, Assessment Plan Diagnosis, Assessment PlanFree Text A P:22yo at 38w5d GA with multiple anomalies, cat II FHT, h/o c/sx3 desiring sterilization, -project economist to OR for repeat c/s with salpingectomy at 1835 RPT #:[id number] OF REPORTHPHistory and physical [id number]:31:00G.[id number] AVAvailable for patient [id number]:35:39 2022-08-16 16:05:00 [id number]:05:00 [facility] ([facility])JOSE Evaluation NoteREPORT#:[id number] REPORT STATUS: SignedDATE:08/16/22 TIME: 1605 PATIENT: MALI MTZ UNIT #: [id number]#: [id number] [address] AGE: 22 SEX: F ATTEND: Abdelrahman Cameron DT: AUTHOR: Nettie Ramirez MD * ALL edits or amendments must be made on the electronic/computer document * See AddendumJOSE HistoryChief complaint: headache (and blurry vision), nausea and vomitingHPI:pt is a 22 y/o @ 38w6 with MIKALA: 08/24/2022 with hx of c/s x 3 prior scheduled for repeat on 08/18- who presents with blurry vision as well as HOLDER. pt reports getting a new eyeglass Rx on 08/13 and started wearing new glasses. has not taken BP at home. n o RUQ pain. also reports ctx. not timingthem. also reports leakage for weeks, was told in office no t ruptured, nor dilated. more leakage which went down leg 2-3 days ago. +FM. no vb. no hx of preE in prior pregc/s due to NRFHTs and arrest of dilation, others were repeat PNC with Dr. Cameron history: : 4 Term: 3 : 0 Abortus: 0 Living children: 3Current : EDC: 08/24/22 EGA (weeks/days): 38 weeks (6d)Pas t medical history: asthma (no use of MDI for years , prn)Past surgical history: (x3), appendectomy (13 y/o), tonsils/adenoids, right carpal tunnel releaseSocial history: no alcohol use, no tobacco use, no drug useMedications:Home Medications: Medication Dose/Rte/Freq Days Qty Entered Last Max Daily Dose Reviewed DOCOSAHEXANOIC ACID 200 MG PO DAILY 08/16/22 08/16/22 ( DHA) 1530 1530 Strength: 200 MG CAP AllergiesCoded Allergies:morphine (Severe , SEIZURES 08/16/22)amoxicillin (From AUGMENTIN) (Intermediate, FACIAL SWELLING 08/15/22)clavulanic acid (From AUGMENTIN) (Intermediate, FACIAL SWELLING 08/15/22) Review of SystemsSkin:Denies: swelling. Allergy/Immun:Denies: allergic reaction, anaphylaxis, hives, itching, rhinorrhea, sneezing, other. Eyes:visual loss/blurred (new eye rx 2 days ago). Respiratory:Denies: SOB, wheezing. GI:Reports: abdominal pain (ctx). :Reports: pelvic pain, , vaginal discharge (discharge increase). Denies:vaginal bleeding. Neuro:headache. All systems rev neg: except as marked Objective GeneralVS:Vital Signs : Date Time Temp Pulse Resp B/P B/P Pulse O2 O2 Flow FiO2 Mean Ox Delivery Rate 08/16 1552 79.0 08/16 1552 101 110/58 08/16 1550 98.4 08/16 1537 75.0 08/16 1537 110 107/55 Last Documented: Result Date Time B/P Mean 79.0 08/16 1552 B/P 110/58 08/16 1552 Pulse 101 08/16 1552 Temp 98.4 08/16 1550 Vital Signs Date Temp Pulse Resp B/P B/P Mean Pulse Ox FiO2 08/16 98.4 101-110 107-110/55-58 75.0-79.0 PATIENT WEIGHT: Weight (lb): Weight (oz): Weight (kg): Physical ExamHEENT: normocephalic w/o injury (glasses on) , pupils equalLungs: unlabored breathingNeuro: Exam: alert, oriented x3, normal speechAbdomen: gravid, soft, no abnormal tenderness, no guarding, no rebound tendernessUterine activity: Monitor: toco Frequency (description): irregular Frequency (minutes): 10 Duration (seconds): 35 Intensity: mildPelvic exam: Pelvis clinically adequate: yes Vulvar lesions: none Sterile speculum exam: visually closed, physiological discharge, no pooling, no bleedingCervical/ exam: Dilatation (cm): 0 - closed Effacement (%) : 50 station: - 4 FHR evaluation: Baseline: 140 bpm Variability: moderate 6-25 bpm Accelerations: 15 X 15 Decelerations: late FHR category: category 2Lower extremities: Edema: none Calf tenderness: negative Diagnosis, Assessment Plan Diagnosis, Assessment PlanFree Text A P:A: 22 y/o @ 38w6 with ctx r/o labor2. leakage r/o rom3. prior c/s x 34. HOLDER, blurry vision, BP normal and recently new eye glasses rx5. cat 2 tracing with late decel with normal variabilityP1. BP normal d/w pt Blurry vision and Holder may be due to new eyeglass rx typically happens2. IV hydration to see if ctx resolve and improves tracing- not currently in labor, cervix closed3. leakage- clinically does not appear ROM, amnisure test sent4. continue to monitor do not feel need to send preE panel at this time since BP normal and recent hx of eye glass rx, will monitor and obtain UA. plan d/w Dr. Cameron. will hydrate and see if tracing improvesPlan discussed with: patient, nurse, primary OB at 1628 Addendum 1: 08/16/22 172 by Nettie Ramirez MD after fluid hydration, baby still having occ late decels and still with ctx every 5-7 mins. +FM. given this d/w Dr. Cameron, will call to jennifer n on c/s today. NICU to be present at delivery given congenital malformations Electronically Signed by Nettie Ramirez MD o n 08/16/22 at 1724 Addendum 2: 08/16/22 172 by Nettie Ramirez MD proceed with c/s with bilateral salpingectomy per pt at 1724 RPT #:[id number] OF REPORTBob myers [id number]:05:00G.[id number] l able for patient [id number]:29:08 2022-08-16 16:04:00 [id number]:04:00 [facility] ([facility])OB Medical Screenin g ExamREPORT#:[id number] REPORT STATUS: SignedDATE:08/16/22 TIME: 1604 PATIENT: MALI MTZ UNIT #: [id number]#: [id number] [address] AGE: 22 SEX: F ATTEND: Abdelrahman Cameron DT: AUTHOR: Nettie Ramirez MD * ALL edits or amendments must be made on the electronic/computer document * Medical Screening Exam Provider AttestationAttestation:The QMP MSE reviewed. Comments:22 y/o @ 38w6d here for blurry vision, holder, also possible leakageMD notified at 4:02MD at bedside at 4:05 pm at 1605 RPT #:[id number] OF REPORTBob myers [id number]:04:00G.[id number] l able for patient [id number]:05:42"
--- NOTE | 2023-08-07 21:27 | RAD REPORT ---
EXAM DESCRIPTION: Mellissa Single View08/07/2023 9:15 pm CLINICAL HISTORY: SOB COMPARISON: No comparisons TECHNIQUE: Portable AP view of the chest. FINDINGS: The lungs are clear. No pneumothorax or effusion. The cardiomediastinal contours are unre markable. IMPRESSION: No acute cardiopulmonary process.
[2023-08-07 21:41] LABS: Absolute Lymphocytes (CBC) 3.6 K/uL (0.7-4.9); Hematocrit 41.4 % (36.0-45.0); Lymphocytes % 40.1 % (15.3-44.8); MCV 82.5 fL (80-100); MPV 7.4 fL (7.6-11.3); Platelets 319 thou/uL (152-406); RBC Red Blood Cell Count 5.02 M/uL (3.86-4.86)
[2023-08-07 21:47] LABS: Specific Gravity 1.015 (1.005-1.030)
[2023-08-07 21:58] LABS: Barbiturates NEGATIVE (NEGATIVE); Benzodiazepines NEGATIVE (NEGATIVE); Cocaine NEGATIVE (NEGATIVE); METHAMPHETAM NEGATIVE (NEGATIVE); Methadone NEGATIVE (NEGATIVE); Opiates NEGATIVE (NEGATIVE); Phencyclidine NEGATIVE (NEGATIVE); THC Cannibis NEGATIVE (NEGATIVE)
[2023-08-07 22:02] LABS: Magnesium 2.4 mg/dL (1.6-2.4); Potassium 3.4 mEq/L (3.5-5.1); Troponin High Sensitivity 3.6 pg/mL (<58.9)
[2023-08-07 22:34] LABS: Protime INR 1.01
[2023-08-07 22:54] LABS: Specific Gravity 1.015 (1.005-1.030); Urine Bilirubin Negative (Negative); Urine Blood 2+ (Negative); Urine Clarity Cloudy (Clear); Urine Color Yellow (Yellow); Urine Glucose Negative (Negative); Urine Protein Negative (Negative); Urine Urobilinogen 0.2 mg/dL (0.2-1.0); Urine pH 5.5 (5.0-7.0)
[2023-08-07 23:01] LABS: Urine Bacteria <20 /HPF (<20); Urine Crystals Unidentified Few /HPF (None Seen); Urine Mucus Slight /HPF (None Seen); Urine RBC <5 /HPF (None Seen); Urine WBC Clump Rare /HPF (None Seen)
[2023-08-07] MEDS ORDERED: POTASSIUM 25 MEQ EFFERV TAB ONE (23:50)
[2023-08-07] MEDS ORDERED: NA CHLORIDE 0.9% 1,000 ML ONE (23:50)
[2023-08-07] MEDS ORDERED: SMZ./TMP. 800/160 MG TABLET ONE (23:50)
--- NOTE | 2023-08-08 00:34 | EDPHYS ---
Physician Documentation [facility] Name: Nicole Covarrubias Age: 23 yrs Sex: Female : 2000 Arrival Date: 08/07/2023 Time: 19:46 Bed DIS3 Private MD: ED Physician Guy Noland HPI: 08/07 20:03 This 23 yrs old Female presents to ER via Ambulatory with complaints of cp increased heart rate, body tingling. 20:03 The patient presents with a history of heart racing. cp 20:03 Context: The symptoms occur at rest. Onset: The symptoms/episode began/occurred today. cp Associated signs and symptoms: Pertinent positives: tingling, Pertinent negatives: chest pain, cough, fever, syncope. Severity of symptoms: in the emergency department the symptoms are unchanged despite home interventions. Historical: - Allergies: 19:56 Amoxicillin; mb9 19:56 Augmentin; mb9 19:56 Morphine; mb9 19:56 PENICILLINS; mb9 - Home Meds: 19:56 None [Active]; mb9 - PMHx: 19:56 Asthma; mb9 - PSHx: 19:56 None; mb9 - Immunization history:: Adult Immunizations up to date. - Social history:: Smoking status: Patient denies any tobacco usage or history of. ROS: 20:05 Constitutional: Negative for body aches, chills, fever, poor PO intake, cp 20:05 Cardiovascular: Positive for palpitations, Negative for chest pain, edema, cp 20:05 Eyes: Negative for injury, pain, redness, and discharge, cp 20:05 ENT: Negative for drainage from ear(s), ear pain, sore throat, difficulty swallowing, difficulty handling secretions, 20:05 Abdomen/GI: Negative for abdominal pain, vomiting, diarrhea, constipation, 20:05 : Negative for urinary symptoms, 20:05 Skin: Negative for rash, 20:05 Neuro: Positive for tingling, Negative for altered mental status, headache, syncope, weakness, 20:05 All other systems are negative, Exam: 20:08 ECG was reviewed by the Attending Physician. cp 20:10 Constitutional: The patient appears in no acute distress, alert, awake, cp non-diaphoretic, non-toxic, well developed, well nourished, 20:10 Head/Face: Normocephalic, atraumatic. cp 20:10 Eyes: Periorbital structures: appear normal, Pupils: equal, round, and reactive to light and accomodation, Extraocular movements: intact throughout, Conjunctiva: normal, no exudate, no injection, Sclera: no appreciated abnormality, Lids and lashes: appear normal, bilaterally, 20:10 ENT: External ear(s): are unremarkable, Nose: is normal, Mouth: Lips: moist, Oral mucosa: pink and intact, moist, Posterior pharynx: is normal, airway is patent, no erythema, no exudate, 20:10 Neck: ROM/movement: is normal, is supple, without pain, no range of motions limitations, no meningismus, no nuchal rigidity, 20:10 Chest/axilla: Inspection: normal, 20:10 Cardiovascular: Rate: tachycardic, Rhythm: regular, Edema: is not appreciated, JVD: is not appreciated, 20:10 Respiratory: the patient does not display signs of respiratory distress, Respirations: normal, no use of accessory muscles, no retractions, labored breathing, is not present, Breath sounds: are clear throughout, no decreased breath sounds, no stridor, no wheezing, 20:10 Abdomen/GI: Inspection: abdomen appears normal, Palpation: abdomen is soft and non-tender, in all quadrants, 20:10 Neuro: Orientation: to person, place \T\ time. Mentation: is normal, Cerebellar function: is grossly normal, Motor: moves all fours, strength is normal, Sensation: no obvious gross deficits, Vital Signs: 19:54 BP 120 / 54; Pulse 114; Resp 18; Temp 98.2; Pulse Ox 97% on R/A; Weight 88.9 kg; Height mb9 5 ft. 2 in. ; 08/08 00:47 BP 113 / 67; Pulse 85; Resp 16; Pulse Ox 100% ; bp 08/07 19:54 Body Mass Index 35.85 (88.90 kg, 157.48 cm) mb9 MDM: 08/07 19:59 Patient medically screened. cp 08/08 00:32 Data reviewed: vital signs, nurses notes, lab test result(s), EKG, radiologic studies, cp plain films. 00:32 Differential diagnosis: UTI, cardiac arrhythmia, dehydration, electrolyte abnormality, cp influenza, COVID-19. I considered the following discharge prescriptions or medication management in the emergency department Medications were administered in the Emergency Department. See MAR. Independent interpretation of the following test(s) in the Emergency Department EKG: See my EKG interpretation above. Test considered but Not performed: CT: chest. Counseling: I had a detailed discussion with the patient and/or guardian regarding the historical points, exam findings, and any diagnostic results supporting the discharge/admit diagnosis, lab results, radiology results, the need for outpatient follow up, a family practitioner, to return to the emergency department if symptoms worsen or persist or if there are any questions or concerns that arise at home. Response to treatment: the patient's symptoms have markedly improved after treatment, and as a result, I will discharge patient. 08/07 19:59 Order name: PREGU; Complete Time: 23:03 08/07 20:21 Order name: Basic Metabolic Panel; Complete Time: 23:03 08/07 23:03 Interpretation: Normal except: K 3.4. 08/07 20:21 Order name: CBC with Diff; Complete Time: 23:03 08/07 23:03 Interpretation: Normal except: RBC 5.02; MPV 7.4. 08/07 20:21 Order name: D-Dimer; Complete Time: 23:03 08/07 20:21 Order name: Magnesium; Complete Time: 23:03 08/07 20:21 Order name: NT PRO-BNP; Complete Time: 23:03 08/07 20:21 Order name: PT-INR; Complete Time: 23:03 08/07 20:21 Order name: Troponin HS; Complete Time: 23:03 08/07 20:21 Order name: UDS; Complete Time: 23:03 08/07 22:54 Order name: Urinalysis w/ reflexes; Complete Time: 23:03 EDGA 08/07 23:04 Interpretation: Normal except: UBLD 2+; UNIT Positive; UESTR 1+; UWBC 20-50. 08/07 23:04 Order name: Urine Culture EDGA 08/07 20:21 Order name: XRAY Chest (1 view); Complete Time: 23:03 08/07 19:59 Order name: EKG; Complete Time: 20:00 08/07 19:59 Order name: EKG - Nurse/Tech; Complete Time: 20:03 cp 08/07 20:21 Order name: Cardiac monitoring; Complete Time: 00:45 cp 08/07 20:21 Order name: IV Saline Lock; Complete Time: 23:43 cp 08/07 20:21 Order name: Labs collected and sent; Complete Time: 23:43 cp 08/07 20:21 Order name: O2 Per Protocol; Complete Time: 00:45 cp 08/07 20:21 Order name: O2 Sat Monitoring; Complete Time: 00:45 cp 08/08 00:32 Order name: Vital Signs; Complete Time: 00:45 cp EC/27 20:08 Rate is 110 beats/min. Rhythm is regular. ND interval is normal. QRS interval is cp normal. QT interval is normal. T waves are Inverted in leads III, aVR. Interpreted by me. Reviewed by me. Administered Medications: 23:38 Drug: Potassium PO Effervescent Tablet 25 mEq PO once; dissolve in 4 ounces of water or me1 juice Route: PO; 08/08 00:46 Follow up: Response: No adverse reaction bp 08/07 23:43 Drug: NS 0.9% IV 1000 ml IV at 1 bolus Per protocol; 1000 mL bolus Route: IV; Rate: 1 me1 bolus; Site: right antecubital; 08/08 00:46 Follow up: IV Status: Completed infusion; IV Intake: 1000ml bp 08/07 23:43 Drug: Trimethoprim-Sulfamethoxazole PO (160 mg-800 mg (DS) 1 tablet PO once Route: PO; me1 08/08 00:45 Follow up: Response: No adverse reaction bp Disposition Summary: 08/08/23 00:33 Discharge Ordered Notes: Location: Home cp Problem: new cp Symptoms: have improved cp Condition: Stable cp Diagnosis - Palpitations cp - Paresthesia of skin cp - Hypokalemia cp - UTI/ Urinary tract infection, site not specified cp Followup: cp - With: Private Physician - When: 2 - 3 days - Reason: Recheck today's complaints Discharge Instructions: - Discharge Summary Sheet cp - Potassium Content of Foods cp - Palpitations cp - Paresthesia cp - Urinary Tract Infection, Adult cp - Hypokalemia cp - Ambulatory Cardiac Monitoring cp Forms: - Medication Reconciliation Form cp - Thank You Letter cp - Antibiotic Education cp - Prescription Opioid Use cp - Patient Portal Instructions cp - Leadership Thank You Letter cp Prescriptions: - Bactrim DS 800-160 mg Oral Tablet - take 1 tablet ORAL route every 12 hours for 7 days; 14 tablet; Refills: 0, cp Product Selection Permitted Addendum: 08/09/2023 12:41 Co-signature as Attending Physician, Guy Noland MD I agree with the assessment s p4 and plan of care. I reviewed the patient's care provided by the Advanced Practice Provider and agree with the diagnosis and treatment plan. Signatures: Dispatcher [employer] EDMS Topher Felton PA PA cp Breneman, Iman Luke RN RN mb9 Guy Noland MD MD sp4 Michelle Faria RN RN me1 Trevon Pino RN bp Corrections: (The following items were deleted from the chart) 08/07 19:57 19:56 Home Meds: control; mb9 mb9 22:57 20:00 Urinalysis W/Microscopic+U.LAB.BRZ ordered. EDGA EDGA
--- NOTE | 2023-08-08 00:34 | ER ---
Nurse's Notes [facility] Name: Nicole Covarrubias Age: 23 yrs Sex: Female : 2000 Arrival Date: 08/07/2023 Time: 19:46 Bed DIS3 Private MD: Diagnosis: Palpitations;Paresthesia of skin;Hypokalemia;UTI/ Urinary tract infection, site not specified Presentation: 08/07 19:54 Chief complaint: Patient states: "For the past week, I've been having episodes of mb9 dizziness, SOB, tingling, pain on my left side, and feel like my heart is racing. They usually occur when i'm walking". Coronavirus screen: Vaccine status: Patient reports being unvaccinated. Ebola Screen: No symptoms or risks identified at this time. Initial Sepsis Screen: Does the patient meet any 2 criteria? No. Patient's initial sepsis screen is negative. Does the patient have a suspected source of infection? No. Patient's initial sepsis screen is negative. Risk Assessment: Do you want to hurt yourself or someone else? Patient reports no desire to harm self or others. Onset of symptoms was August 07, 2023. 19:54 Method Of Arrival: Ambulatory mb9 19:54 Acuity: PHUONG 3 mb9 Triage Assessment: 19:57 General: Appears uncomfortable, Behavior is calm, cooperative. Pain: Denies pain. EENT: mb9 No signs and/or symptoms were reported regarding the EENT system. Neuro: Erickson Agitation-Sedation Scale (RASS): 0 - Alert and Calm Level of Consciousness is awake, alert, obeys commands, Oriented to person, place, time, situation, Appropriate for age Reports dizziness. Cardiovascular: Reports palpitations. Respiratory: Airway is patent Respiratory effort is even, unlabored, Respiratory pattern is regular, symmetrical. GI: No signs and/or symptoms were reported involving the gastrointestinal system. : No signs and/or symptoms were reported regarding the genitourinary system. Derm: Skin is pink, warm \\T\\ dry. Musculoskeletal: Range of motion: intact in all extremities. Historical: - Allergies: 19:56 Amoxicillin; mb9 19:56 Augmentin; mb9 19:56 Morphine; mb9 19:56 PENICILLINS; mb9 - Home Meds: 19:56 None [Active]; mb9 - PMHx: 19:56 Asthma; mb9 - PSHx: 19:56 None; mb9 - Immunization history:: Adult Immunizations up to date. - Social history:: Smoking status: Patient denies any tobacco usage or history of. Screenin/28 00:46 [facility] ED Fall Risk Assessment (Adult) History of falling in the last 3 months, bp including since admission No falls in past 3 months (0 pts). Abuse screen: Denies threats or abuse. Denies injuries from another. Nutritional screening: No deficits noted. Tuberculosis screening: No symptoms or risk factors identified. Vital Signs: 08/07 19:54 BP 120 / 54; Pulse 114; Resp 18; Temp 98.2; Pulse Ox 97% on R/A; Weight 88.9 kg; Height mb9 5 ft. 2 in. ; 08/08 00:47 BP 113 / 67; Pulse 85; Resp 16; Pulse Ox 100% ; bp 08/07 19:54 Body Mass Index 35.85 (88.90 kg, 157.48 cm) mb9 ED Course: 08/07 19:51 Patient arrived in ED. gm2 19:56 Triage completed. mb9 19:57 Arm band placed on. mb9 19:59 Topher Felton PA is PHCP. cp 19:59 Gopi Edward MD is Attending Physician. cp 20:03 EKG done, by ED staff, reviewed by Topher SALDANA. mb9 21:17 XRAY Chest (1 view) In Process Unspecified. EDMS 23:46 Guy Noland MD is Attending Physician. cp 08/08 00:46 Patient has correct armband on for positive identification. bp 00:46 No provider procedures requiring assistance completed. IV discontinued, intact, bp bleeding controlled, No redness/swelling at site. Pressure dressing applied. Administered Medications: 08/07 23:38 Drug: Potassium PO Effervescent Tablet 25 mEq PO once; dissolve in 4 ounces of water or me1 juice Route: PO; 08/08 00:46 Follow up: Response: No adverse reaction bp 08/07 23:43 Drug: NS 0.9% IV 1000 ml IV at 1 bolus Per protocol; 1000 mL bolus Route: IV; Rate: 1 me1 bolus; Site: right antecubital; 08/08 00:46 Follow up: IV Status: Completed infusion; IV Intake: 1000ml bp 08/07 23:43 Drug: Trimethoprim-Sulfamethoxazole PO (160 mg-800 mg (DS) 1 tablet PO once Route: PO; me1 08/08 00:45 Follow up: Response: No adverse reaction bp Intake: 00:46 IV: 1000ml; Total: 1000ml. bp Outcome: 00:33 Discharge ordered by MD. cp 00:46 Discharged to home ambulatory, bp 00:46 Condition: stable 00:46 Discharge instructions given to patient, Instructed on discharge instructions, follow up and referral plans. medication usage, Demonstrated understanding of instructions, follow-up care, medications, Prescriptions given X 1, 00:47 Patient left the ED. bp Signatures: Dispatcher [employer] EDMS Topher Felton PA PA cp Peltier, Brian RN RN Iman Reeves, RN RN mb9 Michelle Faria RN RN ny1 Krystina Massey 2 Corrections: (The following items were deleted from the chart) 08/07 19:57 19:56 Home Meds: control; mb9 mb9 20:46 20:46 Reassessment: mb9 mb9
[2023-08-08 01:18] VITALS: TEMP 98.2
[2023-08-08 01:20] VITALS: BP 113/67; O2SAT 100
--- NOTE | 2023-08-10 15:25 | EKG ---
Test Date: 2023-08-07 Test Time: 20:02:13 Contracts Attorney: MB MEASUREMENT RESULTS: Intervals: Rate: 110 IL: 124 QRSD: 86 QT: 324 QTc: 438 [place]: P: 47 IL: 124 QRS: 62 T: 29 INTERPRETIVE STATEMENTS: Sinus tachycardia Otherwise normal ECG No previous ECG available for comparison Electronically Signed On 08-10-23 15:15:01 GENERATION ENGINEERING TECHNOLOGIST by Yo Cunha
== END 2023-08-08 00:47 | disposition home or self-care (01) ==
LOC: ER 19:46
DX: R00.2 Palpitations (principal); R20.2 Paresthesia of skin; E87.6 Hypokalemia; N39.0 Urinary tract infection, site not specified
CPT/HCPCS: 36415; 71045; 80048; 80307; 81001; 81025; 83735; 83880; 84484; 85025; 85379; 85610; 87077; 87086; 87088; 87186; 93005; 96360; 99284; J7030

== ENCOUNTER 2024-07-01 18:20 | Emergency (ER) | payer SELFPAY ==
[2024-07-01] MEDS ORDERED: KETOROLAC 30 MG/ML INJ ONE (19:35)
[2024-07-01] MEDS ORDERED: NA CHLORIDE 0.9% 1,000 ML ONE (19:35)
[2024-07-01] MEDS ORDERED: ONDANSETRON 4 MG/2 ML VIAL ONE (19:35)
[2024-07-01 19:44] LABS: Absolute Eosinophils 0.1 K/uL (0-0.5); Absolute Lymphocytes (CBC) 2.8 K/uL (0.7-4.9); Absolute Monocytes 0.5 K/uL (0.1-1.3); Absolute Neutrophil 9.6 K/uL (1.8-8.0); Basophils % 0.3 % (0-1.3); Eosinophils % 0.7 % (0-4.4); Hematocrit 37.9 % (36.0-45.0); Hemoglobin 12.9 g/dL (12.0-15.0); Lymphocytes % 21.2 % (15.3-44.8); MCH 28.7 pg (27.0-35.0); MCHC 34.1 g/dL (32.0-36.0); MCV 84.2 fL (80-100); MPV 7.5 fL (7.6-11.3); Monocytes % 3.9 % (3.3-12.3); Neutrophils % 73.9 % (41.7-73.7); Nucleated Red Blood Cells % 0.1 % (0-0); Platelets 275 thou/uL (152-406); Red Cell Distribution Width 13.9 % (12.1-15.2)
[2024-07-01 19:45] LABS: Specific Gravity 1.009 (1.005-1.030); Sqamous Epithelial <5 /HPF (None Seen); Urine Bacteria <20 /HPF (<20); Urine Bilirubin NEGATIVE (Negative); Urine Blood Negative (Negative); Urine Clarity Clear (Clear); Urine Color Colorless (Yellow); Urine Crystals Unidentified Few /HPF (None Seen); Urine Culture Reflex Order NOT NEEDED; Urine Glucose NEGATIVE (Negative); Urine Ketones NEGATIVE (Negative); Urine Microscopic Reflex YN ORDER UMIC; Urine Nitrite NEGATIVE (Negative); Urine Protein NEGATIVE (Negative); Urine RBC <5 /HPF (None Seen); Urine Urobilinogen Normal (Normal); Urine WBC Clump Rare /HPF (None Seen); Urine Yeast (Budding) Trace /HPF (None Seen); Urine pH 6.5 (5.0-7.0)
[2024-07-01 19:46] LABS: Specific Gravity 1.009 (1.005-1.030)
[2024-07-01 20:03] LABS: Albumin 3.6 g/dL (3.4-5.0); Albumin/Globulin Ratio 0.9 (1.1-1.8); Anion Gap 7.8 mEq/L (5.0-15.0); Bilirubin Total 0.2 mg/dL (0.2-1.0); Potassium 3.8 mEq/L (3.5-5.1); Protein, Total 7.6 g/dL (6.4-8.2)
--- NOTE | 2024-07-01 20:56 | RAD REPORT ---
EXAMINATION: Stone Protocol CLINICAL INDICATION: Abdominal pain TECHNIQUE: CT abdomen and pelvis was performed, without IV contrast, as per department protocol. Oral contrast not given. Axial, sagittal and coronal reconstructions were obtained. One or more of the following dose reduction techniques were used: Automated exposure control, adjustment of the mA and k V according to the patient size, and iterative reconstruction. Unless otherwise specified, incidental findings do not require dedicated imaging follow-up. COMPARISON: 2019 FINDINGS: The lack of intravenous and oral contrast limits the sensitivity of this exam for evaluation of solid visceral organs, vascular structures, and bowel A renal calculus not seen. No ureteral calculus. A bladder calculus not noted. No hydronephrosis. Mil d right renal cortical thinning unchanged perhaps secondary to prior inflammation. Multiple gallstones. Gallbladder wall thickening. Small focal hernia. Liver, spleen, pancreas and adrenals grossly normal Appendectomy. 2 cm soft tissue abuts the right aspect of the rectum. No evidence of diverticulitis. IMPRESSION: Negative for a genitourinary calculus Cholelithiasis without evidence of cholecystitis 2 cm soft tissue structure abuts the right aspect of the rectum. This may represent a rectal mass. Di gital examination and/or direct visualization recommended.
--- NOTE | 2024-07-01 22:34 | RAD REPORT ---
EXAMINATION: Transvaginal Study Probe CLINICAL INDICATION: Pelvic pain TECHNIQUE: Real-time ultrasonography of the pelvis was performed transvaginally. Color and spectral D oppler evaluation of the ovaries was performed. COMPARISON: CT abdomen July 01, 2024. FINDINGS: The uterus measures 11 x 4 x 5 cm. The endometrial stripe was poorly visualized.. No gross abnormality displayed Right ovary normal in size and echotexture. Left ovary normal in size and echotexture. Blood flow to each ovary seen. Right and left adnexa unremarkable No significant free fluid IMPRESSION: No significant abnormalities displayed
--- NOTE | 2024-07-01 22:39 | EDPHYS ---
Physician Documentation [facility] Name: Nicole Covarrubias Age: 24 yrs Sex: Female : 2000 Arrival Date: 07/01/2024 Time: 18:20 Bed 11 Private MD: ED Physician Rip Lee HPI: 07/01 22:57 This 24 yrs old Female presents to ER via Ambulatory with complaints of kb Abdominal Pain. 22:57 Pt is a 24 year old female who presents for suprapubic pain that started about a week kb ago, but got worse tonight. States she was seen at [facility] ER and was diagnosed with an ovarian cyst (19mm). Pt reports history of PCOS. Denies nausea, vomiting, diarrhea. Historical: - Allergies: 18:38 Amoxicillin; ll1 18:38 Augmentin; ll1 18:38 Morphine; ll1 18:38 PENICILLINS; ll1 - PMHx: 18:38 Asthma; ll1 - PSHx: 18:38 Appendectomy; section; ll1 - Immunization history:: Adult Immunizations up to date. - Infectious Disease History:: Denies. - Social history:: Smoking status: Patient denies any tobacco usage or history of. ROS: 22:59 Constitutional: As per HPI kb Exam: 22:59 Constitutional: This is a well developed, well nourished patient who is awake, alert, kb and in no acute distress. Head/Face: Normocephalic, atraumatic. ENT: Moist Mucous membranes Cardiovascular: Regular rate Respiratory: Respirations even and unlabored. No increased work of breathing. Talking in full sentences Skin: Warm, dry with normal turgor. Normal color. MS/ Extremity: Pulses equal, no cyanosis. Neurovascular intact. Full, normal range of motion. Neuro: Awake and alert, GCS 15, oriented to person, place, time, and situation. 22:59 Abdomen/GI: Inspection: abdomen appears normal, Bowel sounds: normal, Palpation: soft, in all quadrants, mild abdominal tenderness, in the suprapubic area, Vital Signs: 18:38 BP 127 / 82; Pulse 115; Resp 18; Temp 98; Pulse Ox 100% on R/A; Pain 10/10; ll1 19:40 BP 126 / 74; Pulse 88; Resp 18; Temp 98.6; Pulse Ox 99% on R/A; ar6 22:00 BP 122 / 67; Pulse 74; Resp 18; Pulse Ox 99% on R/A; ar6 18:38 Pain Scale: Adult ll1 MDM: 18:30 Medical Screening Exam initiated kb 22:58 Differential diagnosis: non-specific abd pain, Ovarian Torsion, urinary tract kb infection, ovarian cyst. Data reviewed: vital signs, nurses notes. Counseling: I had a detailed discussion with the patient and/or guardian regarding the historical points, exam findings, and any diagnostic results supporting the discharge/admit diagnosis, lab results, radiology results, the need for outpatient follow up, an OB/Gyne specialist, to return to the emergency department if symptoms worsen or persist or if there are any questions or concerns that arise at home. ED course: Discussed CT findings with pt and recommended rectal exam. Pt states she has no issues with her rectum and no pain so she prefers not to do that. . 07/01 18:41 Order name: CBC with Diff; Complete Time: 19:56 kb 07/01 18:41 Order name: CMP; Complete Time: 20:08 kb 07/01 18:41 Order name: Lipase; Complete Time: 20:08 kb 07/01 18:41 Order name: Test, Urine; Complete Time: 19:56 kb 07/01 18:41 Order name: Urinalysis w/ reflexes; Complete Time: 19:56 kb 07/01 18:41 Order name: CT Stone Protocol; Complete Time: 21:04 kb 07/01 21:57 Order name: US Transvaginal Study (Probe); Complete Time: 22:34 kb 07/01 18:41 Order name: IV Saline Lock; Complete Time: 22:07 kb 07/01 18:41 Order name: Labs collected and sent; Complete Time: 22:07 kb Administered Medications: 22:07 Discontinued: ns 0.9% 1000 ml IV at 1 bolus Per protocol; to be given as a bolus over ar6 60 minutes 18:45 Drug: TORadol - Ketorolac IVP 15 mg IVP once Route: IVP; Site: right antecubital; ar6 22:06 Follow up: Response: No adverse reaction ar6 23:05 Follow up: Response: No adverse reaction ar6 18:45 Drug: Ondansetron IVP 4 mg IVP once; over 2 minutes Route: IVP; Site: right antecubital;ar6 22:07 Follow up: Response: No adverse reaction ar6 23:05 Follow up: Response: No adverse reaction ar6 18:45 Drug: NS 0.9% IV 1000 ml IV at 1 bolus Per protocol; to be given as a bolus over 60 ar6 minutes Route: IV; Rate: 1 bolus; Site: right antecubital; 22:07 Follow up: Response: No adverse reaction; IV Status: Completed infusion; IV Intake: ar6 1000ml Disposition Summary: 07/01/24 22:39 Discharge Ordered Notes: Location: Home kb Condition: Stable kb Diagnosis - Lower abdominal pain, unspecified kb - Other cholelithiasis without obstruction kb Followup: kb - With: Emergency Department - When: As needed - Reason: Worsening of condition Followup: kb - With: Private Physician - When: 2 - 3 days - Reason: Recheck today's complaints, Continuance of care, Re-evaluation by your physician Discharge Instructions: - Discharge Summary Sheet kb - Pelvic Pain, Female, [id number] kb - Cholelithiasis, [id number] kb Forms: - Medication Reconciliation Form kb - Antibiotic Education kb - Prescription Opioid Use kb - Patient Portal Instructions kb - Leadership Thank You Letter kb Signatures: Dispatcher [employer] EDYovnaa Lutz, EDUCATION ADMINISTRATIVE ASSISTANT-C EDUCATION ADMINISTRATIVE ASSISTANT-Jacqueline Aguirre, RN RN ll1 Miranda Ramirez RN RN ar6 Corrections: (The following items were deleted from the chart) 18:41 18:41 CBC+H.LAB.BRZ ordered. EDMS EDMS 18:41 18:41 COMPREHENSIVE METABOLIC PANEL+C.LAB.BRZ ordered. EDMS EDMS 18:41 18:41 LIPASE+C.LAB.BRZ ordered. EDMS EDMS 18:41 18:41 Test, Urine+UC.LAB.BRZ ordered. EDMS EDMS 18:41 18:41 Urinalysis+U.LAB.BRZ ordered. EDMS EDMS
--- NOTE | 2024-07-01 22:39 | ER ---
Nurse's Notes [facility] Name: Nicole Covarrubias Age: 24 yrs Sex: Female : 2000 Arrival Date: 07/01/2024 Time: 18:20 Bed 11 Private MD: Diagnosis: Lower abdominal pain, unspecified;Other cholelithiasis without obstruction Presentation: 07/01 18:38 Chief complaint: Patient states: Severe lower abdominal pain and cannot urinate well ll1 started today. Coronavirus screen: Client denies travel out of the [place] in the last 14 days. At this time, the client does not indicate any symptoms associated with coronavirus-19. Ebola Screen: Patient denies travel to an Ebola-affected area in the 21 days before illness onset. Initial Sepsis Screen: Does the patient meet any 2 criteria? No. Patient's initial sepsis screen is negative. Does the patient have a suspected source of infection? No. Patient's initial sepsis screen is negative. Risk Assessment: Do you want to hurt yourself or someone else? Patient reports no desire to harm self or others. Onset of symptoms was July 01, 2024. 18:38 Method Of Arrival: Ambulatory 1 18:38 Acuity: PHUONG 3 ll1 Triage Assessment: 18:38 General: Appears distressed, uncomfortable, Behavior is cooperative, appropriate for 1 age, restless. Pain: Complains of pain in lower abdomen. Neuro: No deficits noted. GI: Reports lower abdominal pain, nausea. : Reports hard to urinate. Historical: - Allergies: 18:38 Amoxicillin; ll1 18:38 Augmentin; ll1 18:38 Morphine; ll1 18:38 PENICILLINS; ll1 - PMHx: 18:38 Asthma; ll1 - PSHx: 18:38 Appendectomy; section; ll1 - Immunization history:: Adult Immunizations up to date. - Infectious Disease History:: Denies. - Social history:: Smoking status: Patient denies any tobacco usage or history of. Screenin:40 [facility] ED Fall Risk Assessment (Adult) History of falling in the last 3 months, ar6 including since admission No falls in past 3 months (0 pts) Confusion or Disorientation No (0 pts) Intoxicated or Sedated No (0 pts) Impaired Gait No (0 pts) Mobility Assist Device Used No (0 pt) Altered Elimination No (0 pt) Score/Fall Risk Level 0 - 2 = Low Risk Oriented to surroundings, Maintained a safe environment, Hourly rounding (assess needs \T\ fall precautionary measures) done. Abuse screen: Denies threats or abuse. Denies injuries from another. Nutritional screening: No deficits noted. Tuberculosis screening: No symptoms or risk factors identified. Assessment: 19:40 General: Appears in no apparent distress. uncomfortable, Behavior is calm, cooperative, ar6 appropriate for age. Pain: Complains of pain in abdomen Pain currently is 6 out of 10 on a pain scale. Pain began 4 hours ago. Neuro: Level of Consciousness is awake, alert, obeys commands, Oriented to person, place, time, situation. Cardiovascular: Capillary refill < 3 seconds. Respiratory: Airway is patent. GI: Abdomen is round non-distended, Bowel sounds present X 4 quads. Abd is soft X 4 quads Abdomen is tender to palpation in suprapubic area, right lower quadrant and left lower quadrant. : Urine is cloudy. EENT: Oral mucosa is moist. Derm: Skin is intact, is healthy with good turgor, Skin is dry, Skin is pink, warm \T\ dry. Musculoskeletal: No signs and/or symptoms reported regarding the musculoskeletal system. Vital Signs: 18:38 BP 127 / 82; Pulse 115; Resp 18; Temp 98; Pulse Ox 100% on R/A; Pain 10/10; ll1 19:40 BP 126 / 74; Pulse 88; Resp 18; Temp 98.6; Pulse Ox 99% on R/A; ar6 22:00 BP 122 / 67; Pulse 74; Resp 18; Pulse Ox 99% on R/A; ar6 18:38 Pain Scale: Adult ll1 ED Course: 18:23 Patient arrived in ED. mg5 18:30 Yovana Stapleton FNP-C is [facility]. kb 18:30 Gopi Edward MD is Attending Physician. kb 18:30 Rip Lee MD is Attending Physician. kb 18:39 Triage completed. ll1 18:39 Arm band placed on. ll1 19:19 Miranda Ramirez, RN is Primary Nurse. ar6 19:40 No apparent distress. ar6 19:40 Patient has correct armband on for positive identification. Bed in low position. Call ar6 light in reach. Side rails up X 1. Provided Education on: plan of care. Pulse ox on. NIBP on. 19:40 No provider procedures requiring assistance completed. Inserted saline lock: 22 gauge ar6 in right antecubital area, using aseptic technique. Blood collected. Flushed with 10 mL NS. 20:28 CT Stone Protocol In Process Unspecified. EDMS 22:23 US Transvaginal Study (Probe) In Process Unspecified. EDMS 23:05 IV discontinued, intact, bleeding controlled, No redness/swelling at site. Pressure ar6 dressing applied. Administered Medications: 22:07 Discontinued: ns 0.9% 1000 ml IV at 1 bolus Per protocol; to be given as a bolus over ar6 60 minutes 18:45 Drug: TORadol - Ketorolac IVP 15 mg IVP once Route: IVP; Site: right antecubital; ar6 22:06 Follow up: Response: No adverse reaction ar6 23:05 Follow up: Response: No adverse reaction ar6 18:45 Drug: Ondansetron IVP 4 mg IVP once; over 2 minutes Route: IVP; Site: right antecubital;ar6 22:07 Follow up: Response: No adverse reaction ar6 23:05 Follow up: Response: No adverse reaction ar6 18:45 Drug: NS 0.9% IV 1000 ml IV at 1 bolus Per protocol; to be given as a bolus over 60 ar6 minutes Route: IV; Rate: 1 bolus; Site: right antecubital; 22:07 Follow up: Response: No adverse reaction; IV Status: Completed infusion; IV Intake: ar6 1000ml Medication: 19:40 VIS not applicable for this client. ar6 Intake: 22:07 IV: 1000ml; Total: 1000ml. ar6 Outcome: 22:39 Discharge ordered by MD. kim 23:05 Discharged to home ambulatory, ar6 23:05 Condition: good 23:05 Discharge instructions given to patient, Instructed on discharge instructions, follow up and referral plans. Demonstrated understanding of instructions, follow-up care, 23:06 Patient left the ED. ar6 Signatures: Dispatcher [employer] Yovana Carlson, AERONAUTICAL DESIGN ENGINEER-C FELIPE-Jacqueline Aguirre, RN RN 1 Adriana Mon mg5 Miranda Ramirez RN RN ar6
[2024-07-02 05:10] VITALS: TEMP 98.6; O2SAT 99
[2024-07-02 05:11] VITALS: BP 122/67
== END 2024-07-01 23:06 | disposition home or self-care (01) ==
LOC: ER 18:20
DX: K80.80 Other cholelithiasis without obstruction (principal)
CPT/HCPCS: 36415; 74176; 76377; 76830; 80053; 81001; 81025; 83690; 85025; 96361; 96374; 96375; 99284; J2405; J7030